=== PATIENT | male | born 1995 | race Caucasian/White ===

== ENCOUNTER 2021-01-16 02:11 | Emergency (ER) | payer OTHER, SELFPAY ==
--- NOTE | ~2021-01-16 | CT_ITS ---
EXAMINATION: CT ABDOMEN AND PELVIS WITH CONTRAST CLINICAL INFORMATION: Left lower quadrant pain COMPARISON: None TECHNIQUE: Multidetector volumetric images were obtained from the superior aspect of the liver through the pubic symphysis following administration 85 mL of Omnipaque 350 intravenous contrast. Sagittal and coronal reformatted images were obtained on the technologist's workstation. Oral contrast: No This CT examination was performed using dose optimization techniques as appropriate, variously including the following: *Automated exposure control *Adjustment of mA and/or kV according to patient size (this includes techniques or standardized protocols for targeted exams where dose is matched to indication/reason for exam; i.e. extremities or head) *Use of iterative reconstruction technique DLP: 757 mGy-cm FINDINGS: LUNG BASES: The visualized lung bases are unremarkable. LIVER, GALLBLADDER, AND BILIARY TREE: The liver is normal in size, shape, and attenuation. No focal hepatic lesion or biliary ductal dilatation is present. The gallbladder is unremarkable with no evidence of radiopaque gallstones, gallbladder wall thickening, or obvious pericholecystic inflammatory changes. PANCREAS: Unremarkable. SPLEEN: Unremarkable. ADRENAL GLANDS: Unremarkable. KIDNEYS AND URETERS: The kidneys are normal in size, shape, and attenuation. There is mild left hydronephrosis. There is a proximal ureteral 0.5 cm calculus near the ureteropelvic junction. No additional renal calculi. BLADDER: Unremarkable. GASTROINTESTINAL TRACT: The stomach is unremarkable. Normal caliber small bowel. No obstruction. No colonic wall thickening or inflammatory change. Normal appendix. No free air or free fluid. ABDOMINAL WALL: No significant hernia is appreciated. LYMPH NODES: Normal. VASCULAR: Unremarkable. PELVIC VISCERA: The prostate and seminal vesicles are unremarkable. OSSEOUS STRUCTURES: No acute or suspicious osseous abnormality. CT/CT abdomen pelvis w con IMPRESSION: Mild left hydronephrosis with a 0.5 cm proximal ureteral calculus near the ureteropelvic junction.
[2021-01-16 02:19] VITALS: BP 123/73; BP 126/73; PULSE 69; RESP 18; TEMP 37; O2SAT 100; BMI 33.4
--- NOTE | 2021-01-16 02:37 | ED_ITS ---
HPI - Abdominal Pain General Chief Complaint: Abdominal Pain Stated Complaint: abd pain Time Seen by Provider: 01/16/21 02:29 Source: patient Mode of arrival: ambulatory Limitations: no limitations History of Present Illness HPI narrative: Patient comes to the emergency room by EMS complaining of severe abdominal pain, started 1 hour prior to arrival. Patient denies nausea or vomiting, pain is diffuse in his but worse in the left lower quadrant. Patient states that for the last 2 days he has noticed that the color of his urine has been getting darker, today he is urinating Coca-Cola colored urine. Patient denies fever chills. Patient denies flank pain. Related Data Previous Rx's Medication Instructions Recorded ketorolac 10 mg PO TID PRN 5 Days #14 tab 01/16/21 ondansetron HCl [Zofran] 4 mg PO Q6H PRN #14 tab 01/16/21 prednisone 20 mg PO DAILY #5 tab 01/16/21 tamsulosin 0.4 mg PO DAILY #10 cap 01/16/21 Allergies Allergy/AdvReac Type Severity Reaction Status Date / Time No Known Allergies Allergy Unverified 05/31/20 17:18 Review of Systems Review of Systems Constitutional : No Weight loss, No Fever, No Chills, No Night Sweats, No Fatigue, No Malaise ENT/Mouth : No Hearing loss, No Ear Pain, No Nasal Congestion, No Sinus Pain, No Hoarseness, No sore throat, No Rhinorrhea, No Swallowing Difficulty Eyes: No Eye Pain, No Swelling, No Redness, No Foreign Body, No Discharge, No Vision Changes Cardiovascular : No Chest Pain, No SOB, No Dyspnea on Exertion, No Orthopnea, No Edema, No Palpitations Respiratory : No Cough, No Sputum, No Wheezing, No Smoke Exposure, No Dyspnea Gastrointestinal : No Nausea, No Vomiting, No Diarrhea, No Constipation, complaining of diffuse abdominal pain, worse in the left lower quadrant No Hematochezia, No Melena Genitourinary : Complaining of Coca-Cola colored urine, No Dysuria, No Urinary Frequency, No Hematuria, No Urinary Incontinence, No Urgency, No Flank Pain, No Urinary Flow Changes, No Hesitancy Musculoskeletal : No joint pain, No Myalgias, No Joint Swelling Skin : No Skin Lesions, No rash Neuro : No Weakness, No Numbness, No Paresthesias, No Loss of Consciousness, No Dizziness, No Headache Psych : No Anxiety/Panic, No Depression, No SI/HI/AH/VH, No Social Issues, Heme/Lymph: No Bruising, No Bleeding,No Lymphadenopathy Endocrine : No Polyuria, No Polydipsia, No Temperature Intolerance Physical Exam Vital Signs: Vital Signs: Last Vital Signs Temp 98.6 F 01/16/21 02:19 Pulse 69 01/16/21 02:19 Resp 18 01/16/21 02:19 BP 126/73 01/16/21 02:19 Pulse Ox 100 01/16/21 02:19 Body Mass Index 33.4 Appearance: Alert. Oriented X3. In pain, unable to lay down comfortably Eyes: Pupils equal, round and reactive to light. ENT: Pharynx normal. Neck: Normal inspection. Neck supple. No lymph nodes noted. No crepitus CVS: Normal heart rate and rhythm. Pulses normal. Normal S1 and S2 Respiratory: No respiratory distress. Breath sounds normal. No Wheezing. No rales Abdomen: Soft , diffuse tenderness to palpation, worse in the left lower quadrant, guarding in all quadrants, positive CVA tenderness in the left side Skin: Skin warm and dry. Normal skin color. Normal skin turgor. Extremities: No lower extremity edema. No lower extremity edema. No Lacerations. No Rash Neuro: Oriented X 3. No motor deficit. No sensory deficit. Moving all extermities. No slurred speech. Course Course Course Narrative: I discussed the labs and imaging with the patient, patient has a 0.5 cm in the UPJ. I discussed with the patient that at this size, it is 50%/50% that he may pass it or he may need surgical intervention. At this time, patient states that he feels much better, patient will be going home with medication, instructed to follow-up with urology. MDM - Abdominal Pain Lab Data Result diagrams: 01/16/21 02:48 01/16/21 02:47 Labs: Lab Results 01/16/21 01/16/21 01/16/21 Range/Units 02:47 02:47 02:48 WBC 8.6 (4.8-10.8) X10*3/uL RBC 4.86 (4.60-5.80) X10*6/uL Hgb 14.7 (14.0-18.0) g/dl Hct 40.6 L (42-52) % MCV 83.5 (80-98) fL MCH 30.2 (27.0-33.0) pg MCHC 36.2 H (31.0-36.0) g/dl RDW 11.8 (11.0-16.0) % Plt Count 293 (160-400) X10*3/uL MPV 10.1 (9.4-12.4) fL Immature Gran % (Auto) 0.1 (0.0-0.4) % Neut % (Auto) 44.0 L (45-73) % Lymph % (Auto) 46.4 H (20-40) % [place] % (Auto) 6.5 (2-11) % Eos % (Auto) 2.8 (0-4) % Baso % (Auto) 0.2 (0-2) % Lymph # (Auto) 4.0 (1.2-4.9) X10*3/uL [place] # (Auto) 0.6 (0.1-1.2) X10*3/uL Eos # (Auto) 0.2 (0.0-0.4) X10*3/uL Baso # (Auto) 0.0 (0.0-0.2) X10*3/uL Abs Immat Gran (auto) 0.01 (0.00-0.03) X10*3/uL Absolute Neuts (auto) 3.8 (2.0-8.3) X10*3/uL Absolute Nucleated RBC 0.000 (0.0-0.012) X10*3/uL Nucleated RBC % (auto) 0.0 (0.0-0.2) /100WBC Sodium 140 (135-145) mmol/L Potassium 3.9 (3.3-5.1) mmol/L Chloride 104 (96-108) mmol/L Carbon Dioxide 23 (22-29) mmol/L Anion Gap 17 (12-20) BUN 13 (9-16) mg/dL Creatinine 0.97 (0.5-1.4) mg/dL Estim Creat Clear Calc 134.4 Estimated GFR > 60 Random Glucose 109 (60-115) mg/dL Calcium 9.8 (8.4-10.2) mg/dL Total Bilirubin 0.6 (0.0-1.0) mg/dL Direct Bilirubin 0.2 (0.0-0.5) mg/dL AST 19 (5-37) U/L ALT 26 (0-40) U/L Alkaline Phosphatase 82 (39-117) U/L Total Protein 7.3 (6.5-8.0) g/dL Albumin 4.4 (3.5-5.0) g/dL Lipase 15 (8-78) U/L Urine Color Urine Appearance Urine pH (5.0-8.0) Ur Specific [place] (1.005-1.025) Urine Protein (NEG-TRACE) MG/DL Urine Glucose (UA) (NEG) MG/DL Urine Ketones (NEG) MG/DL Urine Blood (NEG) Urine Nitrite (NEG) Ur Leukocyte Esterase (NEG) Urine RBC (0) /HPF Urine WBC (0-4) /HPF Ur Squamous Epith Cells /LPF Urine Bacteria /LPF Hyaline Casts /LPF Urine Mucus /LPF 01/16/21 Range/Units 02:48 WBC (4.8-10.8) X10*3/uL RBC (4.60-5.80) X10*6/uL Hgb (14.0-18.0) g/dl Hct (42-52) % MCV (80-98) fL MCH (27.0-33.0) pg MCHC (31.0-36.0) g/dl RDW (11.0-16.0) % Plt Count (160-400) X10*3/uL MPV (9.4-12.4) fL Immature Gran % (Auto) (0.0-0.4) % Neut % (Auto) (45-73) % Lymph % (Auto) (20-40) % [place] % (Auto) (2-11) % Eos % (Auto) (0-4) % Baso % (Auto) (0-2) % Lymph # (Auto) (1.2-4.9) X10*3/uL [place] # (Auto) (0.1-1.2) X10*3/uL Eos # (Auto) (0.0-0.4) X10*3/uL Baso # (Auto) (0.0-0.2) X10*3/uL Abs Immat Gran (auto) (0.00-0.03) X10*3/uL Absolute Neuts (auto) (2.0-8.3) X10*3/uL Absolute Nucleated RBC (0.0-0.012) X10*3/uL Nucleated RBC % (auto) (0.0-0.2) /100WBC Sodium (135-145) mmol/L Potassium (3.3-5.1) mmol/L Chloride (96-108) mmol/L Carbon Dioxide (22-29) mmol/L Anion Gap (12-20) BUN (9-16) mg/dL Creatinine (0.5-1.4) mg/dL Estim Creat Clear Calc Estimated GFR Random Glucose (60-115) mg/dL Calcium (8.4-10.2) mg/dL Total Bilirubin (0.0-1.0) mg/dL Direct Bilirubin (0.0-0.5) mg/dL AST (5-37) U/L ALT (0-40) U/L Alkaline Phosphatase (39-117) U/L Total Protein (6.5-8.0) g/dL Albumin (3.5-5.0) g/dL Lipase (8-78) U/L Urine Color BROWN Urine Appearance HAZY Urine pH 6.5 (5.0-8.0) Ur Specific [place] >= 1.030 H (1.005-1.025) Urine Protein 2+ H (NEG-TRACE) MG/DL Urine Glucose (UA) NEG (NEG) MG/DL Urine Ketones NEG (NEG) MG/DL Urine Blood 3+ H (NEG) Urine Nitrite NEG (NEG) Ur Leukocyte Esterase NEG (NEG) Urine RBC 76-150 H (0) /HPF Urine WBC 1-4 (0-4) /HPF Ur Squamous Epith Cells 1+ /LPF Urine Bacteria 2+ /LPF Hyaline Casts 1-4 /LPF Urine Mucus 2+ /LPF Imaging Data CT scan - abdomen: Radiologist's impression: FINDINGS: LUNG BASES: The visualized lung bases are unremarkable. LIVER, GALLBLADDER, AND BILIARY TREE: The liver is normal in size, shape, and attenuation. No focal hepatic lesion or biliary ductal dilatation is present. The gallbladder is unremarkable with no evidence of radiopaque gallstones, gallbladder wall thickening, or obvious pericholecystic inflammatory changes. PANCREAS: Unremarkable. SPLEEN: Unremarkable. ADRENAL GLANDS: Unremarkable. KIDNEYS AND URETERS: The kidneys are normal in size, shape, and attenuation. There is mild left hydronephrosis. There is a proximal ureteral 0.5 cm calculus near the ureteropelvic junction. No additional renal calculi. BLADDER: Unremarkable. GASTROINTESTINAL TRACT: The stomach is unremarkable. Normal caliber small bowel. No obstruction. No colonic wall thickening or inflammatory change. Normal appendix. No free air or free fluid. ABDOMINAL WALL: No significant hernia is appreciated. LYMPH NODES: Normal. VASCULAR: Unremarkable. PELVIC VISCERA: The prostate and seminal vesicles are unremarkable. OSSEOUS STRUCTURES: No acute or suspicious osseous abnormality. CT/CT abdomen pelvis w con IMPRESSION: Mild left hydronephrosis with a 0.5 cm proximal ureteral calculus near the ureteropelvic junction. Discharge Plan Discharge Clinical Impression: Ureterolithiasis Patient Disposition: Home, Self-Care Instructions: Kidney Stones (ED) Additional Instructions: Please follow-up with urology. Please follow-up with your primary care physician tomorrow. If you have any worsening or new symptoms, please return to the emergency room or call 911 Prescriptions: New ketorolac 10 mg tablet 10 mg PO TID PRN (Reason: pain) 5 Days Qty: 14 RF: 0 ondansetron HCl [Zofran] 4 mg tablet 4 mg PO Q6H PRN (Reason: nausea and vomiting) Qty: 14 RF: 0 tamsulosin 0.4 mg capsule 0.4 mg PO DAILY Qty: 10 RF: 0 prednisone 20 mg tablet 20 mg PO DAILY Qty: 5 RF: 0 PMFSH Past Medical History Medical History No known health problems Surgical History No history of previous surgery Social History Social History Alcohol intake: never Smoking Status: Never smoker Use of substances other than those prescribed or required for medical reasons: No Advance Directives: No Advance Directives Information Provided: No
[2021-01-16] MEDS: 0.9 % Sodium Chloride 1,000 ML 999 ML IVCONT (02:49)
[2021-01-16] MEDS: ondansetron HCL 4 MG/2 ML VIAL IVPUSH (02:49)
[2021-01-16] MEDS: Morphine Sulfate 4 MG/ML CARTRIDGE IVPUSH (02:49)
[2021-01-16 02:56] LABS: MANUAL DIFF FLAG NO
[2021-01-16 02:58] LABS: Basophils Percent Auto 0.2 % (0-2); Eosinophils Absolute Auto 0.2 X10*3/uL (0.0-0.4); Eosinophils Percent Auto 2.8 % (0-4); Hematocrit 40.6 % (42-52); Hemoglobin 14.7 g/dl (14.0-18.0); Imm Gran Abs Auto 0.01 X10*3/uL (0.00-0.03); Imm Gran Pct Auto 0.1 % (0.0-0.4); Lymphocytes Percent Auto 46.4 % (20-40); Mean Corpuscular HGB Conc 36.2 g/dl (31.0-36.0); Mean Corpuscular Hemoglobin 30.2 pg (27.0-33.0); Mean Corpuscular Volume 83.5 fL (80-98); Mean Platelet Volume 10.1 fL (9.4-12.4); Monocytes Absolute Auto 0.6 X10*3/uL (0.1-1.2); Monocytes Percent Auto 6.5 % (2-11); Neutrophils Absolute Auto 3.8 X10*3/uL (2.0-8.3); Platelet Count 293 X10*3/uL (160-400); Red Blood Count 4.86 X10*6/uL (4.60-5.80); Red Cell Distribution Width 11.8 % (11.0-16.0); White Blood Count 8.6 X10*3/uL (4.8-10.8)
[2021-01-16 03:07] LABS: Glucose Urine UA NEG (NEG); Leukocyte Esterase Urine NEG (NEG); PH 6.5 (5.0-8.0); Specific Gravity - Urine >= 1.030 (1.005-1.025); Urine Blood 3+ (NEG); Urine Ketones NEG (NEG); Urine Protein 2+ MG/DL (NEG-TRACE)
[2021-01-16 03:12] LABS: Appearance Urine HAZY; Color Urine BROWN; Nitrite Urine NEG (NEG)
[2021-01-16 03:13] LABS: Bacteria Urine 2+ /LPF; Mucus Urine 2+ /LPF; Squamous Epithelial Cell Urine 1+ /LPF
[2021-01-16 03:26] LABS: Anion Gap 17 (12-20); Blood Urea Nitrogen 13 mg/dL (9-16); Calcium 9.8 mg/dL (8.4-10.2); Carbon Dioxide 23 mmol/L (22-29); Chloride 104 mmol/L (96-108); Creatinine Clr Calc Pharmacy 134.4; Estimated Glomerular Filt Rate > 60; Glucose Random 109 mg/dL (60-115); Potassium 3.9 mmol/L (3.3-5.1); Sodium 140 mmol/L (135-145)
[2021-01-16 03:29] LABS: Alanine Aminotransferase 26 U/L (0-40); Albumin Level 4.4 g/dL (3.5-5.0); Alkaline Phosphatase 82 U/L (39-117); Aspartate Amino Transferase 19 U/L (5-37); Bilirubin Direct 0.2 mg/dL (0.0-0.5); Bilirubin Total 0.6 mg/dL (0.0-1.0); Lipase 15 U/L (8-78); Total Protein 7.3 g/dL (6.5-8.0)
[2021-01-16] MEDS: iohexoL 350 MG/ML 100 ML INFUS..BTL 85 ML IV (03:41)
[2021-01-16] MEDS: predniSONE 20 MG TABLET PO (04:35)
[2021-01-16] MEDS: Ketorolac Tromethamine 30 MG/ML VIAL IVPUSH (04:35)
[2021-01-16] MEDS: Tamsulosin HCL 0.4 MG CAPSULE PO (04:35)
== END 2021-01-16 04:36 | disposition home or self-care (01) ==
PROVIDERS: Emergency Provider Emergency Medicine; PCP Internal Medicine Endocrinology, Diabetes & Metabolism
DX: N13.2 Hydronephrosis with renal and ureteral calculous obstruction (principal)
CPT/HCPCS: 36415; 74177; 80048; 80076; 81001; 81003; 83690; 85025; 96361; 96374; 96375; 99284; J1885; J2270; J2405; Q9967

== ENCOUNTER 2021-02-22 07:51 | Day surgery (SDC) | payer OTHER, SELFPAY ==
[2021-02-22] VITALS (13 sets, daily range): BP systolic 98–147; BP diastolic 37–78; PULSE 55–98; RESP 11–18; TEMP 36.2–36.9; O2SAT 95–100; BMI 37.8
--- NOTE | ~2021-02-22 | CT_ITS ---
EXAMINATION: CT ABDOMEN AND PELVIS WITHOUT CONTRAST CLINICAL INFORMATION: Pain. Known left UPJ stone. COMPARISON: Previous CT of the abdomen and pelvis 01/16/2021 TECHNIQUE: Multidetector volumetric imaging was performed from the superior aspect of the liver through the pubic symphysis. Sagittal and coronal reformatted images were obtained on the technologist's workstation. This CT examination was performed using dose optimization techniques as appropriate, variously including the following: *Automated exposure control *Adjustment of mA and/or kV according to patient size (this includes techniques or standardized protocols for targeted exams where dose is matched to indication/reason for exam; i.e. extremities or head) *Use of iterative reconstruction technique DLP: 774 mGy-cm FINDINGS: LUNG BASES: The visualized lung bases are unremarkable. LIVER, GALLBLADDER, AND BILIARY TREE: The liver is normal in size, shape, and attenuation. No focal hepatic lesion or biliary ductal dilatation is present. The gallbladder is unremarkable with no evidence of radiopaque gallstones, gallbladder wall thickening, or obvious pericholecystic inflammatory changes. PANCREAS: Unremarkable. SPLEEN: Unremarkable. ADRENAL GLANDS: Unremarkable. KIDNEYS AND URETERS: There is a 3 x 5 mm mid proximal ureteral stone. There is minimal atelectasis of the stone down the left ureter compared to previous exam. There is increasing mild to moderate left hydronephrosis and ureteral dilatation. BLADDER: Unremarkable. GASTROINTESTINAL TRACT: The small and large bowel are unremarkable. The appendix is unremarkable. ABDOMINAL WALL: No significant hernia is appreciated. LYMPH NODES: Normal. VASCULAR: Unremarkable. PELVIC VISCERA: Unremarkable. OSSEOUS STRUCTURES: Unremarkable. CT/CT abdomen pelvis wo con IMPRESSION: Increasing mild to moderate left hydronephrosis from a 3 x 5 mm left mid ureteral stone.
--- NOTE | ~2021-02-22 | FL_ITS ---
EXAMINATION: XR FLUOROSCOPY WITH IMAGES CLINICAL INFORMATION: Left ureteral stone COMPARISON: Previous CT of the abdomen and pelvis February 2021 TECHNIQUE: Fluoroscopy performed by Dr. Nestor Salas. Fluoroscopy time: 23 seconds Dose: 9.4 mgy Images: 1 FINDINGS: Single fluoroscopic image demonstrates the proximal end of a left ureteral stent projecting over the kidney. FL/FL guidance in OR IMPRESSION: Fluoroscopy guidance for left ureteral stent placement.
--- NOTE | 2021-02-22 07:56 | ED_ITS ---
HPI - Abdominal Pain General Chief Complaint: Abdominal Pain Stated Complaint: abd pain x1 hr Time Seen by Provider: 02/22/21 07:55 Source: patient, EMS and old records reviewed Mode of arrival: EMS Limitations: no limitations History of Present Illness HPI narrative: 25 yo male seen here on 01/16 dx with L UPJ 5mm stone sent home on pain medications, prednisone and flomax - did well pain resolved until 1 hour ago abrupt onset L flank pain with n/v MD elicited complaint: flank pain Pertinent past history: kidney stones Onset (ago): hour(s) (1) Pain Consistency: constant Location: L flank Severity: severe Quality: stabbing Radiation: LLQ Migration to: no migration Exacerbating factors: nothing Relieving factors: nothing Context: history of similar episodes Associated symptoms: nausea and vomiting Related Data Previous Rx's Medication Instructions Recorded ketorolac 10 mg PO TID PRN 5 Days #14 tab 01/16/21 ondansetron HCl [Zofran] 4 mg PO Q6H PRN #14 tab 01/16/21 prednisone 20 mg PO DAILY #5 tab 01/16/21 tamsulosin 0.4 mg PO DAILY #10 cap 01/16/21 Allergies Allergy/AdvReac Type Severity Reaction Status Date / Time No Known Allergies Allergy Unverified 05/31/20 17:18 Review of Systems Review of Systems Constitutional : No Weight loss, No Fever, No Chills ENT/Mouth : No sore throat, No Rhinorrhea Eyes: No Swelling, No Redness Cardiovascular : No Chest Pain, No SOB, NoEdema Respiratory : No Cough, No Sputum, No Wheezing Gastrointestinal : Positive Nausea, Positive Vomiting, no Diarrhea, positive abdominal Pain, No Hematochezia, No Melena Genitourinary : No Dysuria, No Urinary Frequency, No Hematuria, No Urgency Musculoskeletal : No joint pain, No Myalgias, No Joint Swelling, pos back pain Skin : No Skin Lesions, No rash Neuro : No Weakness, No Numbness, No Dizziness, No Headache Psych : No Anxiety/Panic, No Depression Heme/Lymph: No Bruising, No Lymphadenopathy Endocrine : No Polyuria, No Polydipsia All other systems reviewed and are negative. Physical Exam Vital Signs: Vital Signs: Last Vital Signs Temp 98.2 F 02/22/21 15:42 Pulse 91 02/22/21 15:42 Resp 18 02/22/21 15:42 BP 147/77 H 02/22/21 15:42 Pulse Ox 98 02/22/21 15:42 Body Mass Index 37.8 Appearance: Alert. Oriented X3. anxious in pain mild acute distress. Eyes: Pupils equal, round and reactive to light. ENT: Pharynx normal. Neck: Normal inspection. Neck supple. CVS: Normal heart rate and rhythm. Pulses normal. Respiratory: No respiratory distress. Breath sounds normal. Abdomen: Soft and mild L sided ttp no rebound or gurding Back: no ttp Skin: Skin warm and dry. pale skin color. Normal skin turgor. Extremities: No lower extremity edema. No calf ttp Neuro: Oriented X 3. No motor deficit. No sensory deficit. Course Course Course Narrative: stone has not progressed, at this time message sent to Dr. Salas added on flomax and steroids, may need intervention today pending Urology input Dr. Salas to come assess in ED plan for OR later today MDM - Abdominal Pain MDM Narrative Medical decision making narrative: 25 yo male seen here on 01/16 dx with L UPJ 5mm stone sent home on pain medications, prednisone and flomax - did well pain resolved until 1 hour ago abrupt onset L flank pain with n/v at this time suspect the patient's stone is moving, will need repeat labs, UA, IVF, IV pain medications including IV dilaudid for his pain, CT scan repeat to assess stone location, dispo per results and improvement Lab Data Result diagrams: 02/22/21 08:02 02/22/21 08:02 Labs: Lab Results 02/22/21 02/22/21 02/22/21 Range/Units 08:02 08:02 09:30 WBC 5.8 (4.8-10.8) X10*3/uL RBC 4.63 (4.60-5.80) X10*6/uL Hgb 13.9 L (14.0-18.0) g/dl Hct 39.4 L (42-52) % MCV 85.1 (80-98) fL MCH 30.0 (27.0-33.0) pg MCHC 35.3 (31.0-36.0) g/dl RDW 11.7 (11.0-16.0) % Plt Count 291 (160-400) X10*3/uL MPV 10.0 (9.4-12.4) fL Immature Gran % (Auto) 0.2 (0.0-0.4) % Neut % (Auto) 37.1 L (45-73) % Lymph % (Auto) 50.8 H (20-40) % [place] % (Auto) 7.3 (2-11) % Eos % (Auto) 4.3 H (0-4) % Baso % (Auto) 0.3 (0-2) % Lymph # (Auto) 2.9 (1.2-4.9) X10*3/uL [place] # (Auto) 0.4 (0.1-1.2) X10*3/uL Eos # (Auto) 0.3 (0.0-0.4) X10*3/uL Baso # (Auto) 0.0 (0.0-0.2) X10*3/uL Abs Immat Gran (auto) 0.01 (0.00-0.03) X10*3/uL Absolute Neuts (auto) 2.2 (2.0-8.3) X10*3/uL Absolute Nucleated RBC 0.000 (0.0-0.012) X10*3/uL Nucleated RBC % (auto) 0.0 (0.0-0.2) /100WBC Sodium 140 (135-145) mmol/L Potassium 3.9 (3.3-5.1) mmol/L Chloride 106 (96-108) mmol/L Carbon Dioxide 26 (22-29) mmol/L Anion Gap 12 (12-20) BUN 14 (9-16) mg/dL Creatinine 0.96 (0.5-1.4) mg/dL Estim Creat Clear Calc 126.7 Estimated GFR > 60 Random Glucose 115 (60-115) mg/dL Calcium 9.1 D (8.4-10.2) mg/dL Magnesium 1.9 (1.6-2.6) mg/dL Total Bilirubin 0.5 (0.0-1.0) mg/dL Direct Bilirubin 0.2 (0.0-0.5) mg/dL AST 22 (5-37) U/L ALT 28 (0-40) U/L Alkaline Phosphatase 78 (39-117) U/L Total Protein 6.7 (6.5-8.0) g/dL Albumin 4.1 (3.5-5.0) g/dL Lipase 16 (8-78) U/L COVID-19 ([facility]ANVI) Negative (Negative) COVID-19 Clin Com See Note Discharge Plan Discharge Clinical Impression: Calculus of kidney Patient Disposition: Admitted As Inpatient [facility] Past Medical History Attestation statement: The following information was validated with the patient. Medical History No known health problems Renal colic Surgical History No history of previous surgery Social History Social History Alcohol intake: never Patient Tobacco Use Status: Never used Tobacco Use of substances other than those prescribed or required for medical reasons: No Are you DNR?: No Advance Directives: No Advance Directives Information Provided: No
[2021-02-22] MEDS: ondansetron HCL 4 MG/2 ML VIAL IVPUSH (08:06)
[2021-02-22] MEDS: Ketorolac Tromethamine 30 MG/ML VIAL IVPUSH (08:06)
[2021-02-22] MEDS: HYDROmorphone HCl 1 MG/ML SYRINGE IVPUSH ×2 (08:06→11:07)
[2021-02-22] MEDS: 0.9 % Sodium Chloride 1,000 ML 999 ML IVCONT (08:07)
[2021-02-22 08:08] LABS: MANUAL DIFF FLAG NO
[2021-02-22 08:09] LABS: Basophils Percent Auto 0.3 % (0-2); Eosinophils Absolute Auto 0.3 X10*3/uL (0.0-0.4); Eosinophils Percent Auto 4.3 % (0-4); Hematocrit 39.4 % (42-52); Hemoglobin 13.9 g/dl (14.0-18.0); Imm Gran Abs Auto 0.01 X10*3/uL (0.00-0.03); Imm Gran Pct Auto 0.2 % (0.0-0.4); Lymphocytes Absolute Auto 2.9 X10*3/uL (1.2-4.9); Lymphocytes Percent Auto 50.8 % (20-40); Mean Corpuscular HGB Conc 35.3 g/dl (31.0-36.0); Mean Corpuscular Volume 85.1 fL (80-98); Monocytes Absolute Auto 0.4 X10*3/uL (0.1-1.2); Monocytes Percent Auto 7.3 % (2-11); Neutrophils Absolute Auto 2.2 X10*3/uL (2.0-8.3); Neutrophils Percent Auto 37.1 % (45-73); Platelet Count 291 X10*3/uL (160-400); Red Blood Count 4.63 X10*6/uL (4.60-5.80); Red Cell Distribution Width 11.7 % (11.0-16.0); White Blood Count 5.8 X10*3/uL (4.8-10.8)
[2021-02-22 08:35] LABS: Alanine Aminotransferase 28 U/L (0-40); Albumin Level 4.1 g/dL (3.5-5.0); Alkaline Phosphatase 78 U/L (39-117); Anion Gap 12 (12-20); Aspartate Amino Transferase 22 U/L (5-37); Bilirubin Direct 0.2 mg/dL (0.0-0.5); Bilirubin Total 0.5 mg/dL (0.0-1.0); Blood Urea Nitrogen 14 mg/dL (9-16); Calcium 9.1 mg/dL (8.4-10.2); Carbon Dioxide 26 mmol/L (22-29); Chloride 106 mmol/L (96-108); Creatinine Clr Calc Pharmacy 126.7; Estimated Glomerular Filt Rate > 60; Glucose Random 115 mg/dL (60-115); Lipase 16 U/L (8-78); Magnesium 1.9 mg/dL (1.6-2.6); Potassium 3.9 mmol/L (3.3-5.1); Sodium 140 mmol/L (135-145); Total Protein 6.7 g/dL (6.5-8.0)
[2021-02-22] MEDS: methylPREDNISolone Sod Succ 125 MG/2 ML VIAL 60 MG IVPUSH (09:34)
[2021-02-22] MEDS: Tamsulosin HCL 0.4 MG CAPSULE PO (09:34)
[2021-02-22 09:51] LABS: COVID-19 Test Negative (Negative); IDNOW Serial# 9DD0AD1C
[2021-02-22] MEDS: 0.9 % Sodium Chloride 1,000 ML 125 ML IVCONT (11:05)
--- NOTE | 2021-02-22 15:51 | HO.ANESPROP2 ---
[facility] Active Problems Active Problems: All Active Problems (Updated 02/22/21 @ 10:10 by Jaquelin Diamond DO) Calculus of kidney (Acute) Past Medical History Medical History No known health problems Renal colic Surgical History Surgical History No history of previous surgery Social History Social History Alcohol intake: never Patient Tobacco Use Status: Never used Tobacco Advance Directives: No Advance Directives Information Provided: No Meds Allergies Allergy/AdvReac Type Severity Reaction Status Date / Time No Known Allergies Allergy Unverified 05/31/20 17:18 Active Medications: Current Medications Generic Name Dose Route Start Last Admin Trade Name Freq PRN Reason Stop Dose Admin Hydromorphone HCl 1 mg 02/22/21 10:10 02/22/21 11:07 Hydromorphone Hcl 1 Mg/Ml Syringe IVPUSH 1 mg RQ4H PRN Administration Pain, Moderate (Pain Scale 4-6 Sodium Chloride 1,000 mls @ 125 mls/hr 02/22/21 10:15 02/22/21 11:05 Ns IVCONT 125 mls/hr .Q8H LEXIE Administration Lactated Ringer's 500 mls @ 20 mls/hr 02/22/21 16:00 Lr IVCONT .Q24H LEXIE Exam Exam Date and Time: February 22, 2021 1551 Height,Weight and Vital Signs: Height 5 ft 4 in Weight 100 kg Last Vital Signs Temp 98 F 02/22/21 07:55 Pulse 67 02/22/21 11:29 Resp 14 02/22/21 11:29 BP 133/78 02/22/21 11:29 Pulse Ox 97 02/22/21 11:29 Pertinent Lab Results Pertinent Lab Results: Laboratory Tests 02/22/21 02/22/21 02/22/21 08:02 08:02 09:30 WBC 5.8 RBC 4.63 Hgb 13.9 L Hct 39.4 L MCV 85.1 MCH 30.0 MCHC 35.3 RDW 11.7 Plt Count 291 MPV 10.0 Immature Gran % (Auto) 0.2 Neut % (Auto) 37.1 L Lymph % (Auto) 50.8 H [place] % (Auto) 7.3 Eos % (Auto) 4.3 H Baso % (Auto) 0.3 Lymph # (Auto) 2.9 [place] # (Auto) 0.4 Eos # (Auto) 0.3 Baso # (Auto) 0.0 Abs Immat Gran (auto) 0.01 Absolute Neuts (auto) 2.2 Absolute Nucleated RBC 0.000 Nucleated RBC % (auto) 0.0 Sodium 140 Potassium 3.9 Chloride 106 Carbon Dioxide 26 Anion Gap 12 BUN 14 Creatinine 0.96 Estim Creat Clear Calc 126.7 Estimated GFR > 60 Random Glucose 115 Calcium 9.1 D Magnesium 1.9 Total Bilirubin 0.5 Direct Bilirubin 0.2 AST 22 ALT 28 Alkaline Phosphatase 78 Total Protein 6.7 Albumin 4.1 Lipase 16 COVID-19 ([facility]ANVI) Negative COVID-19 Clin Com See Note Airway Mallampati Class: II TM Dist: >3cm Neck ROM: Full Assessment and Plan Assessment Anesthesia Assessment: Anesthesia Plan Discussed and Chart Reviewed Final Anesthetic Review NPO: Yes ASA Class: II Final Preanesthetic Review: No Changes in Pt Med Stat, Meds/Allgs Chart Reviewed, Consent Obtained/Reviewed and Anes Risks/Benef Reviewed Patient Risk: Low Procedure Risk: Low Assessment/Block/Sedation in SS: Assess/Block/Sedation-SS Anesthetic Plan Anesthetic Plan: GA Disposition: Standard PACU
[2021-02-22] MEDS: Lactated Ringers 500 ML 20 ML IVCONT (15:54)
--- NOTE | 2021-02-22 16:27 | MHC.SHP ---
Pre-Procedural Eval Section A The patient is an INPATIENT: No Changes since office visit: No Cold of Flu in the past 2 weeks, No New Medical Problems, No Changes in Medication and No Patient answered all questions The History & Physical has been completed within 30 days and I have reviewed it.: Yes Section B Chief Complaint: abd pain x1 hr Allergies: Allergies Allergy/AdvReac Type Severity Reaction Status Date / Time No Known Allergies Allergy Unverified 05/31/20 17:18 Plan Diagnosis/Plan: Unchanged (Left retrograde ureteroscopy laser and stent) I have reviewed the history and physical and performed a pertinent physical examination on my patient. No changes have occurred unless specified.
--- NOTE | 2021-02-22 16:28 | P.CNUR_ITS ---
History of Present Illness Consult details Consult date: 02/22/21 Narrative: Nolan is a very pleasant male. He is patient of Dr. Moreno. Presents to emergency room with left-sided flank pain Pain is 8/10 Responded to oral medications Associated with nausea and vomiting Had prior presentation January 16 CT imaging shows 6 mm stone at junction between proximal and mid ureter Minimal movement since prior imaging Family history of stones with mother This is his 1st Recommendation for intervention, risks and benefits of ureteroscopy discussed PMF Past Medical History Medical History No known health problems Renal colic Surgical History Surgical History No history of previous surgery Social History Social History Alcohol intake: never Patient Tobacco Use Status: Never used Tobacco Use of substances other than those prescribed or required for medical reasons: No Are you DNR?: No Advance Directives: No Advance Directives Information Provided: No Meds Allergies Allergy/AdvReac Type Severity Reaction Status Date / Time No Known Allergies Allergy Unverified 05/31/20 17:18 Active Medications: Current Medications Generic Name Dose Route Start Last Admin Trade Name Freq PRN Reason Stop Dose Admin Acetaminophen 650 mg 02/22/21 15:50 Acetaminophen 325 Mg Tablet PO ONCE PRN Pain, Mild (Pain Scale 1-3) Fentanyl 50 mcg 02/22/21 15:50 Fentanyl Citrate/Pf 100 Mcg/2 Ml Vial IVPUSH Q5M PRN Pain, Severe (Pain Scale 7-10) Hydromorphone HCl 1 mg 02/22/21 10:10 02/22/21 11:07 Hydromorphone Hcl 1 Mg/Ml Syringe IVPUSH 1 mg RQ4H PRN Administration Pain, Moderate (Pain Scale 4-6 Sodium Chloride 1,000 mls @ 125 mls/hr 02/22/21 10:15 02/22/21 11:05 Ns IVCONT 125 mls/hr .Q8H LEXIE Administration Lactated Ringer's 500 mls @ 20 mls/hr 02/22/21 16:00 02/22/21 15:54 Lr IVCONT 20 mls/hr .Q24H LEXIE Administration Levofloxacin 500 mg 02/22/21 16:25 Levofloxacin 500 Mg Tablet PO 02/22/21 16:26 ONCE ONE Ondansetron HCl 4 mg 02/22/21 15:50 Ondansetron Hcl 4 Mg/2 Ml Vial IVPUSH ONCE PRN Nausea and Vomiting Oxycodone HCl 5 mg 02/22/21 15:50 Oxycodone Hcl Immed Release 5 Mg Tablet PO ONCE PRN Pain, Severe (Pain Scale 7-10) Physical Exam Vital Signs: Vital Signs: Last Vital Signs Temp 98.2 F 02/22/21 15:42 Pulse 91 02/22/21 15:42 Resp 18 02/22/21 15:42 BP 147/77 H 02/22/21 15:42 Pulse Ox 98 02/22/21 15:42 Body Mass Index 37.8 Const: General: cooperative, healthy appearing, comfortable and no acute di stress Nutritional Appearance: average body habitus [place] ation/consciousness: oriented to person, oriented to place and oriented to time Eyes: General: appearance normal, both eyes and all related structures Chest: Chest palpation & inspection: normal inspection of the chest Resp: Effort & Inspection: normal respiratory effort Cardio: Rate: regular rate GI: Inspection: Yes normal to inspection Skin: Hair: normal Neuro: General: oriented to person, oriented to place and oriented to time Extrem: General: Yes normal to inspection Results Labs Result diagrams: 02/22/21 08:02 02/22/21 08:02 Labs: Abnormal lab results 02/22/21 Range/Units 08:02 Hgb 13.9 L (14.0-18.0) g/dl Hct 39.4 L (42-52) % Neut % (Auto) 37.1 L (45-73) % Lymph % (Auto) 50.8 H (20-40) % Eos % (Auto) 4.3 H (0-4) % Short CBC 02/22/21 Range/Units 08:02 WBC 5.8 (4.8-10.8) X10*3/uL Hgb 13.9 L (14.0-18.0) g/dl Hct 39.4 L (42-52) % Plt Count 291 (160-400) X10*3/uL BMP 02/22/21 08:02 Sodium 140 Potassium 3.9 Chloride 106 Carbon Dioxide 26 BUN 14 Creatinine 0.96 Calcium 9.1 D Liver Function 02/22/21 Range/Units 08:02 Total Bilirubin 0.5 (0.0-1.0) mg/dL Direct Bilirubin 0.2 (0.0-0.5) mg/dL AST 22 (5-37) U/L ALT 28 (0-40) U/L Alkaline Phosphatase 78 (39-117) U/L Albumin 4.1 (3.5-5.0) g/dL All other labs normal. Assessment and Plan (1) Calculus of kidney: Status: Acute Ureteroscopy We discussed the nature of the decision and reasonable alternatives for performing the above surgery. Interventions include chemical dissolution, ESWL, ureteroscopy with laser lithotripsy and stent placement, PCNL. Options such as medical therapy were discussed. The relative uncertainties and benefits related to each alternate procedure were adequately discussed. General surgical risks including, but not limited to, pain, bleeding, infection, myocardial infarction, pulmonary embolus, deep vein thrombosis and cerebrovascular accident which may result in further hospitalization were discussed. Full disclosure of the procedure as well as all major risks, benefits and complications were discussed including but not limited to damage to the urethra, bladder and kidney infection, damage to the ureter, stent migration or malposition, scarring to the renal pelvis, remnant stone fragments, subsequent stone passage with need for secondary procedures. The overall secondary proce dure rate is approximately 10-15%. The success rate of the procedure was discussed. Success of the procedure in the short-term does not necessarily guarantee that long-term success will be maintained. Suitable follow up will need to be maintained. The patient showed understanding of discussion and wishes to proceed with - cystoscopy, retrograde, ureteroscopy, possible lithotripsy/stone basketing and stent on the left side Procedures Date of Service Date of Service: 02/22/21
[2021-02-22] MEDS: levoFLOXacin 500 MG TABLET PO (16:29)
--- NOTE | 2021-02-22 17:05 | P.OP_ITS ---
Operative Note Operative Note Date of Service: 02/22/21 Narrative: PreOperative Diagnosis: Left proximal ureteric stone Post Operative Diagnosis: Same Procedure: - left cystoscopy, retrograde - dilatation of ureteric orifice under fluoroscopy - left ureteroscopy, laser lithotripsy, stone basketing - left stent placement Surgeon: Dr Nestor Salas Anesthesia: General Indications for procedure: Nolan was admitted through the emergency room with left-sided flank pain. This was his 2nd presentation with flank pain to the emergency room in the past [address] imaging confirmed there was a 5 mm stone at the junction between the proximal and mid ureter. Associated mild hydronephrosis. Laboratories were normal. Recommendation for intervention with ureteroscopy and associated procedures. Risks and benefits were discussed. Procedure: After informed consent was verified patient was brought to the operating placed in supine position. Anesthesia was administered per protocol. Patient was placed in modified dorsal lithotomy position and prepped and draped in a sterile fashion. Safety pause time-out and side of surgery confirmed. Antibiotics confirmed. Twenty-two [place] cystoscope inserted per urethra. No abnormality noted of the anterior posterior urethra. Bladder was entered. Normal bladder architecture with ureteric orifice in normal position. Left ureteric orifice was cannulated and a retrograde examination performed. Filling defect shown at the junction between the left proximal and left mid ureter consistent with a stone that had been seen on CT. A Sensor guidewire was placed. A [place] dilator was used to dilate ureteric orifice under fluoroscopy. A rigid ureteral scope was taken advanced alongside the Sensor guidewire. The distal ureter was traversed. A Glidewire was placed through the rigid scope to allow guided passage. The stone was encountered at the junction between the proximal and mid ureter. The Glidewire was exchanged for a 360 nm holmium laser fiber. Using dusting settings the stone was broken into small pieces. A flat wire basket was used in an attempt to get a small piece of stone for analysis however they were too small for the basket. The rigid ureteral scope was removed. The wire was backloaded through the cystoscope. A 6 [place] by 22 cm double-J ureteric stent was placed with good coil in the renal pelvis and in the bladder under a combination of fluoroscopy and direct visualization. The bladder was emptied. The patient was extubated in the operating room and transferred in a stable condition to the recovery area. Pathology: none Drains: 6 [place] by 22 cm stent
[2021-02-22] MEDS: Phenazopyridine HCL 100 MG TABLET PO (17:39)
== END 2021-02-22 18:23 | disposition home or self-care (01) ==
LOC: HO.ED 17:04 → HO.SSS 18:15
PROVIDERS: Urology; Emergency Provider Emergency Medicine; PCP Physician Assistant Medical; Visit Provider Surgery
PROC: (CPT 52356; principal; 2021-02-22 16:30)
DX: N13.2 Hydronephrosis with renal and ureteral calculous obstruction (principal); Z87.442 Personal history of urinary calculi; Z20.822 Contact with and (suspected) exposure to COVID-19
CPT/HCPCS: 52356; 36415; 74176; 80048; 80076; 83690; 83735; 85025; 87635; 96361; 96374; 96375; 99285; C1758; C1769; C2617; J1100; J1170; J1885; J2250; J2405; J2765; J2930; J3010

== ENCOUNTER → 2021-03-05 08:49 | Outpatient (BNVA) | payer OTHER, SELFPAY | PROVIDERS: PCP Physician Assistant Medical; Visit Provider Urology | DX: N20.0 Calculus of kidney (principal) | CPT/HCPCS: 52310; 99212 ==

== ENCOUNTER → 2021-04-18 13:45 | Outpatient (BNVA) | payer OTHER, SELFPAY | PROVIDERS: PCP Physician Assistant Medical; Visit Provider Urology | DX: N20.0 Calculus of kidney (principal) | CPT/HCPCS: 99212 ==

== ENCOUNTER 2021-10-03 11:13 | Outpatient (REF) | payer OTHER, SELFPAY ==
--- NOTE | ~2021-10-03 | US_ITS ---
EXAMINATION: US RETROPERITONEAL LIMITED (RENAL ONLY) CLINICAL INFORMATION: Calculus of kidney. COMPARISON: CT abdomen and pelvis without contrast 02/22/2021. TECHNIQUE: Real-time imaging of the kidneys. FINDINGS: RIGHT KIDNEY: 11.0 x 6.0 x 6.6 cm (SAG x AP x TRV). The kidney is normal in size, contour, and echogenicity. Renal cortical thickness is normal. No calculi or focal parenchymal lesions. No hydronephrosis. There are scattered specular echoes in the renal sinus with questionable twinkling artifact. Possibility of nonobstructing punctate calculi cannot be excluded. LEFT KIDNEY: 11.2 x 5.4 x 5.7 cm (SAG x AP x TRV). The kidney is normal in size, contour, and echogenicity. Renal cortical thickness is normal. No focal parenchymal lesions or hydronephrosis. There are specular echoes upper and mid pole each approximately 3 mm in size suspicious for nonobstructing calculi. US/US renal BI IMPRESSION: 1. No hydronephrosis or caliectasis. 2. Probable nonobstructing calculi upper and mid left kidney each approximately 3 mm. Scattered smaller punctate specular echoes right renal sinus possibly nonobstructing calculi.
== END 2021-10-03 11:14 | disposition home or self-care (01) ==
LOC: HO.US 11:13
PROVIDERS: Visit Provider Urology
DX: N20.0 Calculus of kidney (principal)
CPT/HCPCS: 76775

== ENCOUNTER → 2021-10-22 12:55 | Outpatient (BNVA) | payer OTHER, SELFPAY | PROVIDERS: PCP Physician Assistant Medical; Visit Provider Urology ==

== ENCOUNTER 2022-10-07 07:45 | Outpatient (REF) | payer OTHER, SELFPAY ==
--- NOTE | ~2022-10-07 | US_ITS ---
EXAMINATION: US RETROPERITONEAL LIMITED (RENAL ONLY) CLINICAL INFORMATION: Calculus of kidney. COMPARISON: Ultrasound retroperitoneal limited (renal only) 10/03/2021. CT abdomen and pelvis without contrast 02/22/2021. TECHNIQUE: Real-time imaging of the kidneys. FINDINGS: RIGHT KIDNEY: 11.4 x 5.8 x 6.0 cm (SAG x AP x TRV). The kidney is normal in size, contour, and echogenicity. Renal cortical thickness is normal. No calculi or focal parenchymal lesions. No hydronephrosis. LEFT KIDNEY: 11.2 x 6.2 x 5.8 cm (SAG x AP x TRV). The kidney is normal in size, contour, and echogenicity. Renal cortical thickness is normal. No focal parenchymal lesions or hydronephrosis. Nonobstructing 5 mm stone. US/US renal BI IMPRESSION: Nonobstructing left renal nephrolithiasis.
== END 2022-10-07 07:46 | disposition home or self-care (01) ==
LOC: HO.US 07:45
PROVIDERS: Visit Provider Urology
DX: N20.0 Calculus of kidney (principal)
CPT/HCPCS: 76775

== ENCOUNTER 2023-11-24 11:33 | Emergency (ER) | payer OTHER, SELFPAY ==
[2023-11-24 12:16] VITALS: BP 138/72; PULSE 85; RESP 16; TEMP 36.6; O2SAT 98; BMI 35.4
--- NOTE | 2023-11-24 12:17 | ED_ITS ---
HPI - General Adult General Chief complaint: General Medical Stated complaint: Sent by urgent care Time Seen by Provider: 11/24/23 14:07 Source: patient Mode of arrival: ambulatory Limitations: no limitations History of Present Illness HPI narrative: This is a 27-year-old male presenting with complaints of hemorrhoid pain, patient reports he was seen at urgent Care was told he had a hemorrhoid, was placed on a cream, does not seem to be helping, he reports pain has worsened and he feels like the hemorrhoid is just not going away. He was advised to follow- up with the surgeon who he has not yet seen. Reports significant pain 06/23. Denies significant constipation. Denies fevers, chills, nausea, vomiting, abdominal pain, headache, vision changes, dizziness, weaknes, rectal bleeding. Patient not on blood thinners Related Data Previous Rx's Medication Instructions Recorded cephalexin 500 mg tablet 500 mg PO Q6H 7 days #28 tabs 11/24/23 ketorolac 10 mg tablet 10 mg PO TID PRN pain 5 days #15 11/24/23 tabs Allergies Allergy/AdvReac Type Severity Reaction Status Date / Time No Known Allergies Allergy Verified 10/22/21 12:56 Review of Systems Review of Systems: Yes all other systems are reviewed and are negative [facility] Past Medical History Attestation statement: The following information was validated with the patient. Source: old records reviewed and nursing notes reviewed Medical History Renal colic No known health problems Surgical History No history of previous surgery Social History Social History Alcohol intake: never Patient Tobacco Use Status: Never used Tobacco Smoked in Last 30 Days: No Use of substances other than those prescribed or required for medical reasons: No Advance Directives: No Advance Directives Information Provided: No Physical Exam ED Vital Signs: Vital Signs - 24 hr 11/24/23 12:16 Temperature 98 F Pulse Rate 85 Respiratory Rate 16 Blood Pressure 138/72 Pulse Oximetry 98 Oxygen Delivery Method Room Air BMI result Body Mass Index 35.4 vss Appearance: Alert.? Oriented X3.? No acute distress.? Head: Normocephalic, atraumatic, no step-offs or deformities Eyes: Pupils equal, round and reactive to light.? CVS: Normal heart rate and rhythm.? Pulses normal.? Respiratory: No respiratory distress.? Breath sounds normal.? Abdomen: Soft and nontender.? Skin: Skin warm and dry.? Normal skin color.? Normal skin turgor.? Extremities: No lower extremity edema.? No calf ttp. 5/5 strength to bilateral upper and lower extremities Sensative exam: Brisa Pizarro RN as employee relations representative & Dr. Lizama large external hemorrhoid, thrombosed. Neuro: Oriented X 3.? No motor deficit.? No sensory deficit. CN 2-12 intact Course Course Course Narrative: RME: 27 yold male preesnts to the ED for hemmoids pain. Patient on steroid rectal cream. Patient not in distress. Be evaluated in [facility] Reevaluation(s) Reevaluation #1: Successfully did a elliptical incision, multiple large clots expressed. Patient feeling better. Time: 14:39 Reevaluation #2: Educated patient on diagnosis and treatment plan, answered all question, patient verbalizes understanding. At this time patient will be discharged home, advised to return with new or worsening symptoms. Educated on worrisome signs and symptoms and when to return. At this time I feel comfortable discharge home. Medications Administered Discontinued Medications Generic Name Dose Route Start Last Admin Trade Name Freq PRN Reason Stop Dose Admin Ketorolac Tromethamine 30 mg 11/24/23 14:36 11/24/23 15:07 Ketorolac Tromethamine 30 Mg/Ml Vial IM 11/24/23 14:37 30 mg ONCE ONE Administration Procedures Abscess I/D Site: other (Rectal ) Amount of anesthesia used (mL): 10 Technique: incised with blade Sent for culture/gram staining?: No Irrigation: No Packing used?: none Medical Decision Making Medical Decision Making MDM Narrative: 27-year-old male presents with worsening pain to hemorrhoids since Thursday was seen at urgent care placed on topical cream not improving pain worsening. Physical exam Brisa Pizarro RN as employee relations representative & Dr. Lizama large external hemorrhoid, thrombosed. History and physical exam concerning for large thrombosed external hemorrhoid. No signs of prolapse. Plan at this time- will do elliptical incision and tried to remove clot. Differential Diagnosis Differential Diagnoses: The differential diagnosis associated with the presentation includes History and physical exam concerning for large thrombosed external hemorrhoid. No signs of prolapse. Admission/Observation Consideration of admission/observation: Escalation of care including admission/ observation considered Chronic Conditions Patient?s care impacted by: Other (Obesity) Critical Care Time Critical Care Time Critical Care Time: Yes Total Critical Care Time: 35 Attestation: I attest to this time spent taking care of the patient, obtaining history, physical, reviewing labs, imaging, speaking to my attendin Discharge Plan Discharge Clinical Impression: Hemorrhoids, external, thrombosed Patient Disposition: Home, Self-Care Instructions: Hemorrhoids (DC) Additional Instructions: Take your medications as prescribed. If you were prescribed antibiotics today, it is important that you take your medication to their entirety, do not skip any doses, do not finish them early. Follow-up with your primary care provider this week. Return to the emergency department with new or worsening symptoms. Such as fevers, chills, chest pain, shortness of breath, nausea, vomiting, dizziness, headache, vision changes, lethargy In case of emergency call 911 Please follow-up with general surgery. Please take Sitz baths. Use Proctofoam as prescribed Toradol has been sent to your pharmacy, you tolerated this well in the department. Please take this as prescribed do not take this with ibuprofen, or other NSAIDs, do not mix this with alcohol. Side effects of this medication including increased risk for bleeding and possible kidney injury. Prescriptions: New ketorolac 10 mg tablet 10 mg PO TID PRN (Reason: pain) 5 Days Qty: 15 0RF cephalexin 500 mg tablet 500 mg PO Q6H 7 Days Qty: 28 0RF Referrals: [facility] General Surgeons [Provider Group] - 1 day Physician,Unknown J [Physician] - 2 days Stand Alone Forms: Work/School Release Interventions: ED Discharge Assessment Last Done: 11/24/23 15:15 Discharge Date/Time: 11/24/23 15:18
[2023-11-24] MEDS: Ketorolac Tromethamine 30 MG/ML VIAL IM (15:07)
== END 2023-11-24 15:18 | disposition home or self-care (01) ==
PROVIDERS: Emergency Provider Emergency Medicine Emergency Medical Services
DX: K61.1 Rectal abscess (principal); K64.4 Residual hemorrhoidal skin tags
CPT/HCPCS: 45005; 96372; 99284; J1885

== ENCOUNTER 2023-11-26 10:11 | Outpatient (AMB) | payer OTHER, SELFPAY ==
--- NOTE | 2023-11-26 10:13 | A.OFFVIS_ITS ---
Intake Vital Signs 11/26/23 10:16 Height 5 ft 8 in Weight 234 lb BMI 35.6 BP 151/71 H Blood Pressure Location Rt brachial Position Sitting Pulse 69 Intake Visit Reasons: Hemorrhoid external thrombosed Intake Note: Patient here to f/u from ER visit on 11-23-23. Reports 2 clots removed from thrombosed hemorrhoids. Patient c/o very light bleeding. Denies constipation. Still on Cephalexin course. Filter Worker Required: No Accompanied by: GF Yasiri Allergies No Known Allergies Allergy (Verified 11/26/23 10:19) Medication List - Last Reconciled 11/26/23 by David Yang MD cephalexin 500 mg PO Q6H 7 days ketorolac 10 mg PO TID PRN 5 days HPI Hemorrhoid external thrombosed HPI Details 27-year-old male referred by the ER for a thrombosed external hemorrhoid. He says that he went to the ER 2 days ago because of pain and swelling in his anus. He knows he has had hemorrhoids from before but he says that these really have not bothered him much. He says he may have been constipated a few days prior to that episode. He says that he was told he had a thrombosed hemorrhoid. He says that this was drained in the ER and he was instructed to see me. He says he feels much better. He is able to sit down comfortably now. He still notices small amounts of blood but this has improved significantly. [facility] Medical History Renal colic No known health problems Surgical History No history of previous surgery Social History Alcohol intake: never Patient Tobacco Use Status: Never used Tobacco Review of Systems Const Denies chills and Denies fever(s) Card Denies chest pain, Denies dyspnea and Denies dyspnea on exertion Resp Denies cough, Denies dyspnea and Denies dyspnea on exertion GI Denies hematochezia and Denies change in bowel habits Denies hematuria and Denies difficulty urinating Musc Denies back pain and Denies limited range of motion Neuro Denies focal weakness and Denies convulsions Psych Denies depression and Denies mood swings Physical Exam Vital Signs: Last Vital Signs Pulse 69 11/26/23 10:16 BP 151/71 H 11/26/23 10:16 BMI result Body Mass Index 35.6 Const General: comfortable and no acute distress Orientation/consciousness: patient oriented x3 Neck Neck: Yes no lymphadenopathy Resp Auscultation: clear to auscultation bilaterally Cardio Rhythm: regular rhythm GI Other: Rectal exam shows a thrombosed hemorrhoid, external, on the right, nontender this time, no signs of infection Palpation (GI): Soft to palpation, nontender and no guarding Neuro General: patient oriented x3 Assessment & Plan Assessment & Plan (1) Hemorrhoids, external, thrombosed: Code(s): K64.5 - Perianal venous thrombosis Plan: He had a large thrombosed external hemorrhoid and this had been drained in the ER. He currently meets feels much better. He still has some residual hemorrhoid swelling and mass. I told him that he should do warm soaks or hot Sitz baths to hasten resorption of the thrombosed I did tell him that he is hemorrhoids may be symptomatic down the line. He was advised on avoiding straining and constipation. I also told him that if he has significant issues with the hemorrhoids, he is welcome to come back to the office in the future. He is comfortable with the plan. Coding Level of Care Code New Pt Level 3 (20407) Diagnoses Hemorrhoids, external, thrombosed K64.5
[2023-11-26 10:16] VITALS: BP 151/71; PULSE 69; BMI 35.6
== END 2023-11-26 10:45 | disposition home or self-care (01) ==
PROVIDERS: Visit Provider Surgery
DX: K64.5 Perianal venous thrombosis (principal)
CPT/HCPCS: 99203

== ENCOUNTER → 2023-11-26 10:11 | Outpatient (BNVA) | payer OTHER, SELFPAY | PROVIDERS: Visit Provider Surgery | DX: K64.5 Perianal venous thrombosis (principal) | CPT/HCPCS: 99202 ==

== ENCOUNTER 2025-03-11 11:55 | Emergency (ER) | payer OTHER, SELFPAY ==
--- NOTE | ~2025-03-11 | XR_ITS ---
CLINICAL HISTORY: right shoulder pain, atraumatic 3 view right shoulder Comparison: None provided Findings: Bones intact. No dislocations. No significant loss of joint space or osteophytes. Well corticated ossific focus projects over the superior aspect of the glenohumeral joint, measuring 10 mm. No erosions. No radiopaque foreign body. IMPRESSION: 1. No acute findings 2. Possible intra-articular loose body. This could be further assessed with nonemergent outpatient follow-up MRI, if clinically indicated. This document has been electronically signed by: Onofre Sal MD on 03/11/2025 13:12:36
[2025-03-11 11:58] VITALS: BP 145/79; PULSE 80; RESP 16; TEMP 36.9; O2SAT 98; BMI 35.2
--- NOTE | 2025-03-11 12:01 | ED_ITS ---
HPI - General Adult General Chief complaint: Headache Stated complaint: headache and shoulder pain Time Seen by Provider: 03/11/25 12:11 Source: patient Mode of arrival: ambulatory Limitations: no limitations History of Present Illness ED Provider: Sylvie Shaikh NP HPI narrative: Patient is a 29-year-old male who presents emergency department for evaluation of a few complaints. He reports approximately 2 weeks ago he was ill with upper respiratory symptoms and nonproductive cough, was having intermittent chest discomfort associated with the cough. He denies chest pain at this time, cough has nearly resolved, no shortness of breath no fevers or chills. Over the past 3 days he has been experiencing pain to his right shoulder diffusely throughout the shoulder at times radiating down his arm. He typically notices it at night it has on occasion has been him up from sleep. He also has been experiencing headache over the past few days typically presenting in the morning, right- sided. Denies dizziness, lightheadedness, vision changes, pain, neck stiffness, chest pain, shortness of breath and difficulty breathing, numbness or tingling of the extremities, fevers, chills Related Data Previous Rx's ?Medication ?Instructions ?Recorded cephalexin 500 mg tablet 500 mg PO Q6H 7 days #28 tab s 11/24/23 ketorolac 10 mg tablet 10 mg PO TID PRN pain 5 days #15 11/24/23 tabs lidocaine 5 % topical patch 1 patch topical DAILY #30 ea 03/11/25 Allergies Allergy/AdvReac Type Severity Reaction Status Date / Time No Known Allergies Allergy Verified 03/11/25 11:58 Review of Systems Review of Systems: Yes all other systems are reviewed and are negative PMFSH Past Medical History Attestation statement: The following information was validated with the patient. Source: old records reviewed Medical History Renal colic No known health problems Surgical History No history of previous surgery Social History Social History Alcohol intake: never Patient Tobacco Use Status: Never used Tobacco Advance Directives: No Advance Directives Information Provided: Yes Physical Exam ED Vital Signs: Vital Signs - 24 hr 03/11/25 11:58 Temperature 98.4 F Pulse Rate 80 Respiratory Rate 16 Blood Pressure 145/79 H Pulse Oximetry 98 Oxygen Delivery Method Room Air BMI result Body Mass Index 35.2 Appearance: Alert.?Oriented to person, place and time. No acute distress.?Normal affect. Eyes: Pupils equal, round and reactive to light.? EOMI. No nystagmus. ENT: Pharynx normal.?? Neck: Normal inspection.? Neck supple.??Full range of motion. Exacerbation of pain to shoulder with rotation of head and lateral neck flexion. Tenderness upon palpation to right SCM/trapezius. CVS: Heart sounds normal. Normal heart rate and rhythm.? Pulses normal.?? Respiratory: No respiratory distress.? Lung sounds clear to auscultation bilaterally?? Abdomen: Soft and non-tender. Normoactive bowel sounds. Skin: Skin warm and dry.? Normal skin color.? Extremities: No extremity edema. Full range of motion to the right shoulder including external rotation. Neer and Mai negative. No erythema or warmth. No rashes or lesions Neuro: Moves all extremities spontaneously. Sensation intact bilaterally. Ambulates with normal steady gait. Course Course Course Narrative: Allison Rai APRN This is a rapid medical exam. Deferred additional HPI, ROS, PE to primary provider. 29 yo male with no known medical history here with multiple complaints for several weeks of right shoulder pain (intermittent), headache, cough. Will check shoulder x-ray, viral testing VSS Medical Decision Making Medical Decision Making MDM Narrative: Patient is a 29-year-old male presents emergency department for evaluation, primary concern today is the atraumatic right shoulder pain as well as his headache. He recently had URI symptoms with cough chest discomfort that has since resolved. LS CTA Matteo tachypnea or hypoxia no tachycardia he is afebrile. Viral serologies will be obtained. Suspect that the prior chest discomfort was secondary to costochondritis no risk factors for ACS. He has full range of motion to the shoulder the right upper extremities neurovascularly intact distally there is no erythema or warmth to suggest a septic arthritis no rashes or lesions to suggest viral exanthem shingles. He has tenderness upon palpation of the right SCM and trapezius muscle provocative pain to the shoulder with lateral neck flexion and associated headache. I suspect that his pain is primarily muscular in nature with the associated tension headache. I discussed this with the patient in depth, reviewed conservative treatment, use of NSAIDs/acetaminophen, consideration of purchasing a new pillow as he is primarily a side sleeper. 3 view right shoulder Comparison: None provided Findings: Bones intact. No dislocations. No significant loss of joint space or osteophytes. Well corticated ossific focus projects over the superior aspect of the glenohumeral joint, measuring 10 mm. No erosions. No radiopaque foreign body. IMPRESSION: 1. No acute findings 2. Possible intra-articular loose body. This could be further assessed with nonemergent outpatient follow-up MRI, if clinically indicated. Will send patient with a referral for Orthopedics and outpatient follow-up Differential Diagnosis Differential Diagnoses: The differential diagnosis associated with the presentation includes (See narrative above) Lab Data MDM Lab Attestation statement: I reviewed the patient's lab results. Viral serologies are negative Labs: Lab Results 03/11/25 Range/Units 12:13 Influenza Type A (PCR) NEGATIVE (Negative) Influenza Type B (PCR) NEGATIVE (Negative) RSV RNA Qual (PCR) NEGATIVE (Negative) SARS-CoV-2 RNA (RT-PCR) NEGATIVE (Negative) Independent Interpretation I performed an independent interpretation of an: Plain X-Ray (No acute fracture or dislocation to the right shoulder.) Radiology Impression Discussion of test interpretation with radiology: I have reviewed the radiologist's reading. (See above) Independent Historian Clinical information obtained from an independent historian. History obtained from or confirmed by: Spouse External Record Review External record reviewed: Outpatient record Prescription Management I considered prescription management with: Pain Medication Discharge Plan Discharge Clinical Impression: Tension headache, Abnormal x-ray of shoulder Right shoulder strain Qualifiers: Encounter type: initial encounter Qualified Code(s): S46.911A - Strain of unspecified muscle, fascia and tendon at shoulder and upper arm level, right arm, initial encounter Patient Disposition: Home, Self-Care Instructions: Muscle Strain (ED), Tension Headache (ED) Additional Instructions: Rest, apply ice/heat for 10-15 minutes 4-6 times daily. You can take ibuprofen 200 mg, 3 tablets (600mg) every 6-8 hours as needed for pain, in addition to Tylenol 500 mg, 2 tablets (1,000mg) every 4-6 hours as needed for pain, but not to exceed 3 doses daily (3,000mg).? Apply Lidoderm patch to area of pain leave on for 12 hours and remove for 12 hour period to prevent any skin irritation. Consider purchasing a new pillow especially has a side sleeper as this can sometimes make a significant difference with muscular related pain and tension headaches such as you are experiencing. While the x-ray of the shoulder did not show any evidence of fracture or dislocation. There was potential for a foreign body visualized within the shoulder joint, does not exactly clear what this may be at this time, recommending that you follow-up outpatient orthopedic syncope in the further evaluate and consider MRI if they feel necessary. 3 view right shoulde IMPRESSION: 1. No acute findings 2. Possible intra-articular loose body. This could be further assessed with nonemergent outpatient follow-up MRI, if clinically indicated. Return to emergency department any new or worsening symptoms or concerns as necessary. Prescriptions: New lidocaine 5 % adhesive patch,medicated 1 patch topical DAILY Qty: 30 0RF Rx Instructions: leave on most painful area for up to 12 hrs No Action ketorolac 10 mg tablet 10 mg PO TID PRN (Reason: pain) 5 Days Qty: 15 0RF cephalexin 500 mg tablet 500 mg PO Q6H 7 Days Qty: 28 0RF Referrals: Tlyer Hatfield MD [Primary Care Provider, Medical] [facility] [Provider Group] Print Language: Frisian
[2025-03-11 13:00] LABS: Influenza A PCR NEGATIVE (Negative); Influenza B PCR NEGATIVE (Negative); Resp Syncy Virus RNA Qual PCR NEGATIVE (Negative); SARS COV2 PCR INHOUSE NEGATIVE (Negative)
[2025-03-11 14:00] VITALS: BP 134/79; PULSE 71; RESP 16; TEMP 36.8; O2SAT 100
[2025-03-11 14:10] VITALS: BP 134/79; PULSE 71; RESP 16; TEMP 36.8; O2SAT 100
== END 2025-03-11 14:11 | disposition home or self-care (01) ==
PROVIDERS: Nurse Practitioner Family; Emergency Provider Emergency Medicine; PCP Internal Medicine
DX: S43.401A Unspecified sprain of right shoulder joint, initial encounter (principal); R51.9 Headache, unspecified; R07.89 Other chest pain; R05.9 Cough, unspecified; X58.XXXA Exposure to other specified factors, initial encounter; Y93.9 Activity, unspecified; Y92.9 Unspecified place or not applicable; Y99.8 Other external cause status; Z03.818 Encounter for observation for suspected exposure to other biological agents ruled out
CPT/HCPCS: 0241U; 73030; 99283

== ENCOUNTER → 2025-03-11 12:03 | Outpatient (BNV) | payer OTHER, SELFPAY | PROVIDERS: Emergency Provider Emergency Medicine; PCP Internal Medicine; Visit Provider Radiology Diagnostic Radiology | DX: M25.511 Pain in right shoulder (principal) | CPT/HCPCS: 73030 ==

== ENCOUNTER 2025-03-30 11:13 | Emergency (ER) | payer OTHER, SELFPAY ==
--- NOTE | ~2025-03-30 | XR_ITS ---
EXAMINATION: XR CHEST CLINICAL INFORMATION: chest pain on L COMPARISON: None available. TECHNIQUE: 2 views of the chest were obtained. FINDINGS: No significant abnormality is noted involving the heart, lungs, mediastinum, bony thorax or soft tissues. XR/XR chest 2V IMPRESSION: No acute disease Electronically signed by: Bienvenido Gabriel MD 03/30/2025 01:12 PM EDT RP
[2025-03-30 11:27] VITALS: BP 148/84; PULSE 77; RESP 16; TEMP 36.3; O2SAT 100; BMI 35.0
--- NOTE | 2025-03-30 11:30 | ECG_ITS ---
Test Reason : CHEST PAIN Blood Pressure : */* mmHG Vent. Rate : 78 BPM Atrial Rate : 78 BPM P-R Int : 152 ms QRS Dur : 114 ms QT Int : 370 ms P-R-T Axes : 58 65 45 degrees QTcB Int : 421 ms Normal sinus rhythm Incomplete right bundle branch block Borderline ECG No previous ECGs available Referred By: Candice De Los Santos Electronically Signed By: SCOTT CARRERO
--- NOTE | 2025-03-30 11:30 | ED_ITS ---
HPI - General Adult General Chief complaint: Chest Pain Stated complaint: left arm pain sob Time Seen by Provider: 03/30/25 16:01 Source: patient Mode of arrival: ambulatory Limitations: no limitations History of Present Illness ED Provider: Lidia Munroe PA-C HPI narrative: Patient is a 29 year old assigned male at with no reported medical history presenting to the emergency department today with left sided chest and arm pain with associated shortness of breath that is now resolved. Patient states that he has been having brief episodes of left sided chest and arm pain with shortness of breath that last a maximum of 20 minutes and resolve on their own. Patient denies any tobacco use or recent travel. Patient denies any dizziness, lightheadedness, abdominal pain, nausea, vomiting, fever, chills, blurry vision, double vision, loss of vision, back pain, night sweats, pain with urination, increased urinary frequency, increased urinary urgency, blood in his urine or stool, syncope or a near syncopal episode, recent trauma or falls, bowel incontinence, bladder incontinence, or any other complaints at this time. Relieving factors: none Exacerbating factors: none Treatments prior to arrival: none Related Data Previous Rx's ?Medication ?Instructions ?Recorded cephalexin 500 mg tablet 500 mg PO Q6H 7 days #28 tab s 11/24/23 ketorolac 10 mg tablet 10 mg PO TID PRN pain 5 days #15 11/24/23 tabs lidocaine 5 % topical patch 1 patch topical DAILY #30 ea 03/11/25 Allergies Allergy/AdvReac Type Severity Reaction Status Date / Time No Known Allergies Allergy Verified 03/30/25 11:30 Review of Systems 2 Constitutional: Constitutional: Reports no additional constitutional complaints, Denies chills, Denies fever(s) and Denies night sweats Eyes: Eyes: Reports no additional eye complaints, Denies blurry vision, Denies change in vision, Denies diplopia, Denies eye discharge, Denies loss of vision and Denies eye pain ENT: Denies dizziness Cardiovascular: Cardiovascular: Reports no additional cardiovascular complaints, Reports chest pain (now resolved), Denies lightheadedness, Denies Loss of Consciousness and Reports dyspnea (now resolved) Respiratory: Respiratory: Reports no additional respiratory complaints and Reports dyspnea (now resolved) Gastrointestinal: Gastrointestinal: Reports no additional gastrointestinal complaints, Denies abdominal pain, Denies melena, Denies hematochezia, Denies change in bowel habits and Denies change in stool character Genitourinary: Genitourinary: Reports no additional male genitourinary complaints, Denies hematuria, Denies oliguria, Denies difficulty urinating, Denies dysuria, Denies urinary frequency, Denies urinary hesitancy, Denies urinary incontinence and Denies urinary urgency Musculoskeletal: Musculoskeletal: Reports no additional musculoskeletal complaints, Denies numbness and Denies tingling Neurologic: Denies dizziness, Denies loss of vision, Denies numbness and Denies tingling Psychiatric: Psychiatric: Reports no additional psychiatric complaints Endocrine: Endocrine: Reports no additional endocrine complaints Hematologic/Lymphatic: Hematologic/Lymphatic: Reports no additional hematologic/lymphatic complaints Allergic/Immunologic: Allergic/Immunologic: Reports no additional allergic/immunologic complaints PMFSH Past Medical History Attestation statement: The following information was validated with the patient. Source: old records reviewed and nursing notes reviewed Medical History Renal colic No known health problems Surgical History No history of previous surgery Social History Social History Alcohol intake: never Patient Tobacco Use Status: Never used Tobacco Advance Directives: No Advance Directives Information Provided: No Do you have a plan to hurt others: No Plan Physical Exam ED Vital Signs: Vital Signs - 24 hr 03/30/25 11:27 03/30/25 17:29 Temperature 97.4 F 98.4 F Pulse Rate 77 70 Respiratory Rate 16 20 Blood Pressure 148/84 H 133/74 Pulse Oximetry 100 100 Oxygen Delivery Method Room Air Room Air BMI result Body Mass Index 35.0 Const General: cooperative, no acute distress, alert and awake Nutritional Appearance: well nourished Orientation/consciousness: patient oriented x3 HENMT Head: Yes normal to inspection and Yes atraumatic Ears: hearing grossly normal bilaterally and external ears normal General nose exam: Normal external nose present, no nasal discharge noted and no epistaxis Face and sinus: Yes normal facial exam, No abrasion and No laceration Mouth: Normal oral and palatal mucosa present, no drooling and no muffled voice Eyes General: appearance normal, both eyes and all related structures Periorbital: periorbital findings normal Eyelids: Yes eyelids normal Conjunctivae: conjunctivae normal Pupils: Equal, round and reactive pupils present EOM: EOMs intact bilaterally Neck Neck: Yes normal visual inspection, Yes full ROM and Yes no lymphadenopathy Resp Effort & Inspection: normal respiratory effort and able to speak in complete sentences Neuro General: patient oriented x3, moves all extremities and CN's II-XI intact bilaterally Cranial nerves: Yes Equal, round and reactive pupils present Cognition (Neuro): normal cognition Extrem General: Yes normal to inspection, Yes full ROM and Yes capillary refill normal Psych Appearance: grossly normal Mental Status: mental status grossly normal Affect: normal affect Attitude: cooperative Thought process: Normal thought process present Thought content: Normal thought content present Insight: Good insight present (Psych) Course Course Course Narrative: This is a rapid medical exam performed by Ismael De Los Santos NP: Additional HPI, ROS, PE not included below will be deferred to primary provider. Patient is a 29-year-old male presenting to the emergency department with complaint of intermittent left-sided chest pain radiating to left arm for the past few days. States pain occurred while at rest. Denies any recent strenuous activity. Complains of some shortness of breath. Had a cough 3 weeks ago. Plan: EKG, labs, chest x-ray Medical Decision Making Medical Decision Making MDM Narrative: Patient is a 29 year old assigned male at with no reported medical history presenting to the emergency department today with left sided chest and arm pain with associated shortness of breath that is now resolved. Patient's physical exam was unremarkable. Patient's blood work was unremarkable. Patient's EKG was unremarkable. Patient's chest x-ray showed no acute process. I explained my physical exam findings as well as all test results to the patient. I answered all questions asked by the patient. I stressed the importance of the patient taking his medication as directed (either prescribed or as the over the counter packaging recommends). I stressed the importance of the patient following up with his primary care provider. I stressed the importance of the patient returning to the emergency department immediately if his symptoms were to worsen or if he were to develop any dizziness, shortness of breath, difficulty breathing, chest pain, blurry vision, loss of vision, nausea, vomiting, abdominal pain, fever, chills, back pain, or any other complaints. Patient verbalized agreement and understanding with this treatment plan and discharge. >> sign-out was given to me pending D-dimer. This is negative. Patient well- appearing, patient discharge. Differential Diagnosis Differential Diagnoses: The differential diagnosis associated with the presentation includes STEMI NSTEMI Chest pain Pleuritic chest pain Costochondritis Admission/Observation Consideration of admission/observation: Escalation of care including admission/observation considered Patient would have been admitted to the hospital had his work up had any findings where hospital admission was appropriate and his clinical presentation warranted hospital admission. Lab Data [facility] Lab Attestation statement: I reviewed the patient's lab results. My interpretation of these results are in the [facility] Rationale portion of this note. 03/30/25 12:00 03/30/25 12:00 Labs: Lab Results 03/30/25 03/30/25 03/30/25 Range/Units 11:58 12:00 17:12 WBC 5.1 (4.8-10.8) X10*3/uL RBC 4.71 (4.60-5.80) X10*6/uL Hgb 14.3 (14.0-18.0) g/dl Hct 39.8 L (42.0-52.0) % MCV 84.5 (80.0-98.0) fL MCH 30.4 (27.0-33.0) pg MCHC 35.9 (31.0-36.0) g/dl RDW 11.9 (11.0-16.0) % Plt Count 312 (160-400) X10*3/uL MPV 9.8 (9.4-12.4) fL Immature Gran % (Auto) 0.2 (0.0-0.4) % Neut % (Auto) 50.8 (45-73) % Lymph % (Auto) 39.5 (20-40) % Hamblen % (Auto) 7.1 (2-11) % Eos % (Auto) 1.8 (0-4) % Baso % (Auto) 0.6 (0-2) % Lymph # (Auto) 2.0 (1.2-4.9) X10*3/uL Hamblen # (Auto) 0.4 (0.1-1.2) X10*3/uL Eos # (Auto) 0.1 (0.0-0.4) X10*3/uL Baso # (Auto) 0.0 (0.0-0.2) X10*3/uL Abs Immat Gran (auto) 0.01 (0.00-0.03) X10*3/uL Absolute Neuts (auto) 2.6 (2.0-8.3) x10*3/uL Absolute Nucleated RBC 0.000 (0.0-0.012) X10*3/uL Nucleated RBC % (auto) 0.0 (0.0-0.2) /100WBC D-Dimer High Sensitivty < 150 NG/ML Sodium 141 (135-145) mmol/L Potassium 3.9 (3.3-5.1) mmol/L Chloride 107 (96-108) mmol/L Carbon Dioxide 26 (22-29) mmol/L Anion Gap 12 (12-20) BUN 13 (9-16) mg/dL Creatinine 0.97 (0.5-1.4) mg/dL Estim Creat Clear Calc 132.7 Estimated GFR > 60 Random Glucose 94 (60-115) mg/dL Calcium 9.3 (8.4-10.2) mg/dL Total Bilirubin 0.4 (0.0-1.0) mg/dL AST 27 (5-37) U/L ALT 43 H (0-40) U/L Alkaline Phosphatase 76 (39-117) U/L Total Protein 7.5 (6.5-8.0) g/dL Albumin 4.7 (3.5-5.0) g/dL Influenza Type A (PCR) NEGATIVE (Negative) Influenza Type B (PCR) NEGATIVE (Negative) RSV RNA Qual (PCR) NEGATIVE (Negative) SARS-CoV-2 RNA (RT-PCR) NEGATIVE (Negative) Independent Interpretation I performed an independent interpretation of an: EKG and Plain X-Ray Interpretation: My interpretation is in agreement with the radiologist's impression of this imaging study. L EXAMINATION: XR CHEST CLINICAL INFORMATION: chest pain on L COMPARISON: None available. TECHNIQUE: 2 views of the chest were obtained. FINDINGS: No significant abnormality is noted involving the heart, lungs, mediastinum, bony thorax or soft tissues. XR/XR chest 2V IMPRESSION: No acute disease Electronically signed by: Bienvenido Gabriel MD 03/30/2025 01:12 PM EDT RP Dictated By: Bienvenido Gabriel MD Signed By: Electronically signed by Bienvenido Gabriel MD 03/30/25 1312 Vent. Rate: 78 BPM Atrial Rate: 78 BPM P-R Int: 152 ms QRS Dur: 114 ms QT Int: 370 ms P-R-T Axes: 58 65 45 degrees QTcB Int: 421 ms Normal sinus rhythm Incomplete right bundle branch block Borderline ECG No previous ECGs available DD/ 1152 Radiology Impression Discussion of test interpretation with radiology: I have reviewed the radiologist's reading. Discharge Plan Discharge Clinical Impression: Atypical chest pain Patient Disposition: Home, Self-Care Additional Instructions: Your work up today was reassuring that you do not have any emergent process causing your symptoms. Follow up with your primary care provider. Return to the emergency department immediately if your symptoms worsen or if you develop any numbness, tingling, dizziness, shortness of breath, difficulty breathing, chest pain, blurry vision, loss of vision, nausea, vomiting, abdominal pain, fever, chills, back pain, or any other complaints. Please see the information below about our Patient Portal. If you are not yet enrolled in the [facility] Patient Portal, you will receive an enrollment email invitation following your visit to any [facility] care setting. You may also self-enroll in the Patient Portal by visiting our website: [email or web address] The following information is required to access the Patient Portal: - Your [facility] Medical Record Number - Your personal home email address (must match what is in your electronic medical record, Registration staff can assist with this) - Name - Date of Capabilities of the Patient Portal: - Message some providers - View upcoming appointments - Access your health summary, medical history, and visit history - View current conditions and allergies - View procedure and lab results - View your medications, including guidelines, side effects, and precautions - Complete pre-appointment questionnaires requested by your provider - Ready summary reports of your office visits and procedures To access the Patient Portal Mobile [employer], follow these directions: - Search [employer] in the [employer] Store or Google Play Store - Download the [place] - Search for [facility] - Enter your login/password Prescriptions: No Action lidocaine 5 % adhesive patch,medicated 1 patch topical DAILY Qty: 30 0RF Rx Instructions: leave on most painful area for up to 12 hrs ketorolac 10 mg tablet 10 mg PO TID PRN (Reason: pain) 5 Days Qty: 15 0RF cephalexin 500 mg tablet 500 mg PO Q6H 7 Days Qty: 28 0RF Referrals: Tyler Hatfield MD [Primary Care Provider, Medical] Print Language: Swedish
[2025-03-30 12:05] LABS: MANUAL DIFF FLAG NO
[2025-03-30 12:06] LABS: Hematocrit 39.8 % (42.0-52.0); Hemoglobin 14.3 g/dl (14.0-18.0); Imm Gran Abs Auto 0.01 X10*3/uL (0.00-0.03); Imm Gran Pct Auto 0.2 % (0.0-0.4); Lymphocytes Absolute Auto 2.0 X10*3/uL (1.2-4.9); Mean Corpuscular HGB Conc 35.9 g/dl (31.0-36.0); Mean Corpuscular Hemoglobin 30.4 pg (27.0-33.0); Mean Corpuscular Volume 84.5 fL (80.0-98.0); NRBC Abs Auto 0.000 X10*3/uL (0.0-0.012); NRBC Pct Auto 0.0 /100WBC (0.0-0.2); Platelet Count 312 X10*3/uL (160-400); Red Blood Count 4.71 X10*6/uL (4.60-5.80); White Blood Count 5.1 X10*3/uL (4.8-10.8)
[2025-03-30 12:23] LABS: Alanine Aminotransferase 43 U/L (0-40); Albumin Level 4.7 g/dL (3.5-5.0); Alkaline Phosphatase 76 U/L (39-117); Anion Gap 12 (12-20); Aspartate Amino Transferase 27 U/L (5-37); Blood Urea Nitrogen 13 mg/dL (9-16); Calcium 9.3 mg/dL (8.4-10.2); Carbon Dioxide 26 mmol/L (22-29); Chloride 107 mmol/L (96-108); Creatinine Clr Calc Pharmacy 132.7; Estimated Glomerular Filt Rate > 60; Potassium 3.9 mmol/L (3.3-5.1); Sodium 141 mmol/L (135-145); Total Protein 7.5 g/dL (6.5-8.0)
[2025-03-30 12:53] LABS: Resp Syncy Virus RNA Qual PCR NEGATIVE (Negative); SARS COV2 PCR INHOUSE NEGATIVE (Negative)
--- OUTSIDE RECORDS SUMMARY | 2025-03-30 16:47 | XMS_ITS | Encounter Summary ---
Author Organization [employer] Address [address] [facility] [address] [place] [address] Care Team Providers Care Record Cutter Name Role Phone Unavailable Primary Care Provider Unavailabl e Encounter Details Date Type Department Care Team (Late st Contact Info) Description 03/30/2025 Orders Only GENERIC EXTERNAL DATA DEPARTMENT Provider, Generic External Data Social History Tobacco Use Types Packs/Day Years Used Date Smoking Tobacco: Never Assessed Sex and Gender Information Value Date Recorded Sex Assigned at Not on file Legal Sex Male 11:57 AM EDT Gender Identity Not on file Sexual Orientation Not on file documented as of this encounter Plan of Treatment Not on file documented as of this encounter Procedures Procedure Name Priority Date/Time Associated Diagnosis Comments XR CHEST 2 VIEWS Routine 03/30/2025 1:05 PM EDT CBC WITH AUTO DIFFERENTIAL Routine 03/30/2025 12:00 PM EDT COMPREHENSIVE METABOLIC PANEL Routine 03/30/2025 12:00 PM EDT SARS COV2/INFLUENZA A/B AND RSV RNA QL NAAT Routine 03/30/2025 11:58 AM EDT documented in this encounter Results * XR Chest 2 Views (03/30/2025 1:05 PM EDT) Anatomical Region Laterality Modality Chest Radiographic Jessy ging 03/30/2025 1:05 PM EDT Narrative 03/30/2025 1:15 PM EDT [address] [address] XRay Report Signed Patient: Nolan Nicholson MR# : [id number] : 1995 Acct:[id number] Age/Sex: 29 / M ADM Date: 03/30/25 Loc: HO.ED Attending Dr: Ordering Physician: Candice De Los Santos NP Date of Service: 03/30/25 Procedure(s): XR chest 2V Accession Number(s): [id number] cc: Tyler Hatfield MD; Candice De Los Santos NP EXAMINATION: XR CHEST CLINICAL INFORMATION: chest pain on L COMPARISON: None available. TECHNIQUE: 2 views of the chest were obtained. FINDINGS: No significant abnormality is noted involving the heart, lungs, mediastinum, bony thorax or soft tissues. 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 TECHNIQUE: 2 views of the chest were obtained. FINDINGS: No significant abnormality is noted involving the heart, lungs, mediastinum, bony thorax or soft tissues. 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 General: us [facility] External Provider IMG XR PROCEDURES Edited Result - Final * (ABNORMAL) Comprehensive Metabolic Panel (03/30/2025 12:00 PM EDT) Sodium 141 135 - 145 mmol/L [facility] Potassium 3.9 3.3 - 5.1 mmol/L [facility] Chloride 107 96 - 108 mmol/L [facility] Carbon Dioxide 26 22 - 29 mmol/L [facility] Anion Gap 12 12 - 20 [facility] Urea Nitrogen (BUN) 13 9 - 16 mg/dL [facility] Creatinine, Serum 0.97 0.5 - 1.4 mg/dL [facility] Creatinine Clr Calc Pharmacy 132.7 [facility] Comment:eGFR (calculated fro m the MDRD study equation) and eCrCl(calculated from the Cockcroft-Gault equation) are based ondifferent parameters and may not yield comparable results.If eCrCl result is absurd, please check patient'sheight/weight. Estimated Glomerular Filt Rate >60 [facility] Comment:Chronic Kidney Disea se: Estimated GFR < 60 mL/min/1.61o4Vywjrs Kidney Disease: Estimated GFR < 15 mL/min/1.73m2 Glucose 94 60 - 115 mg/dL [facility] Calcium 9.3 8.4 - 10.2 mg/dL [facility] Bilirubin, Total 0.4 0.0 - 1.0 mg/dL [facility] Aspartate Amino Transferase 27 5 - 37 U/L [facility] Alanine Aminotransferase 43(H) 0 - 40 U/L [facility] Total Protein 7.5 6.5 - 8.0 g/dL [facility] Albumin Level 4.7 3.5 - 5.0 g/dL [facility] Alkaline Phosphatase 76 39 - 117 U/L [facility] 03/30/2025 12:0 0 PM EDT 03/30/2025 12:03 PM EDT us Generic External Data Provider LAB BLOOD ORDERAB LES Final Result [facility] [address] [place] [phone] [phone] * (ABNORMAL) CBC auto differential (03/30/2025 12:00 PM EDT) White Blood Count 5.1 4.8 - 10.8 X10*3/uL [facility] Red Blood Count 4.71 4.60 - 5.80 X10*6/uL [facility] Hemoglobin 14.3 14.0 - 18.0 g/dl [facility] Hematocrit 39.8(L) 42.0 - 52.0 % [facility] Mean Corpuscular Volume 84.5 80.0 - 98.0 fL [facility] Mean Corpuscular Hemoglobin 30.4 27.0 - 33.0 pg [facility] Mean Corpuscular HGB Conc 35.9 31.0 - 36.0 g/dl [facility] Red Cell Distribution Width 11.9 11.0 - 16.0 % [facility] Platelet Count 312 160 - 400 X10*3/uL [facility] Mean Platelet Volume 9.8 9.4 - 12.4 fL [facility] Neutrophils Percent Auto 50.8 45 - 73 % [facility] Imm Gran Pct Auto 0.2 0.0 - 0.4 % [facility] Lymphocytes Percent Auto 39.5 20 - 40 % [facility] Monocytes Percent Auto 7.1 2 - 11 % [facility] Eosinophils Percent Auto 1.8 0 - 4 % [facility] Basophils Percent Auto 0.6 0 - 2 % [facility] NRBC Pct Auto 0.0 0.0 - 0.2 /100WBC [facility] Neutrophils Absolute Auto 2.6 2.0 - 8.3 x10*3/uL [facility] Imm Gran Abs Auto 0.01 0.00 - 0.03 X10*3/uL [facility] Lymphocytes Absolute Auto 2.0 1.2 - 4.9 X10*3/uL [facility] Monocytes Absolute Auto 0.4 0.1 - 1.2 X10*3/uL [facility] Eosinophils Absolute Auto 0.1 0.0 - 0.4 X10*3/uL [facility] Basophils Absolute Auto 0.0 0.0 - 0.2 X10*3/uL [facility] NRBC Abs Auto 0.000 0.0 - 0.012 X10*3/uL [facility] 03/30/2025 12:0 0 PM EDT 03/30/2025 12:03 PM EDT us Generic External Data Provider LAB BLOOD ORDERAB LES Final Result [facility] [address] [place] [phone] [phone] * SARS-CoV-2 RNA, Influenza A/B, and RSV RNA, Ql NAAT (03/30/2025 11:58 AM EDT) Influenza A PCR NEGATIVE Negative [facility] Influenza B PCR NEGATIVE Negative [facility] Resp Syncy Virus RNA Qual PCR NEGATIVE Negative [facility] SARS COV2 PCR NEGATIVE Negative [facility] Comment:All test results mus t be correlated with clinical findings.Negative results do not preclude SARS-CoV2, influenza Avirus, influenza B virus and/or RSV infectionand should not be used as the sole basis for treatment orother patient management decisions. Negative results must becombined with clinical observations, patient history, andepidemiological information.This test has not been evaluated for monitoring treatment ofinfection.This test has been authorized by the FDA under an EmergencyUse Authorization (EUA) for use by authorized laboratories.Testing performed on the [employer] GeneXpert utilizingreal-time RT-PCR.All SARS CoV2 and positive influenza A/B results arereported to [facility]. 03/30/2025 11:5 8 AM EDT 03/30/2025 12:04 PM EDT us Generic External Data Provider LAB MICROBIOLOGY - GENERAL ORDERABLES Final Result [facility] [address] [place] [phone] documented in this encounter Visit Diagnoses Not on filedocumented in this encounter
[2025-03-30 17:29] VITALS: BP 133/74; PULSE 70; RESP 20; TEMP 36.9; O2SAT 100
[2025-03-30 17:36] LABS: D Dimer High Sensitivity < 150 NG/ML
[2025-03-30 18:18] VITALS: BP 133/74; PULSE 70; RESP 20; TEMP 36.9; O2SAT 100
== END 2025-03-30 18:19 | disposition home or self-care (01) ==
PROVIDERS: Physician Assistant Medical; Registered Nurse Emergency; Emergency Provider Emergency Medicine; PCP Internal Medicine
DX: R07.89 Other chest pain (principal); M79.602 Pain in left arm; R06.02 Shortness of breath; Z03.818 Encounter for observation for suspected exposure to other biological agents ruled out; Z79.899 Other long term (current) drug therapy
CPT/HCPCS: 36415; 71046; 80053; 85025; 85379; 87637; 93005; 99283; 99285

== ENCOUNTER → 2025-03-30 11:30 | Outpatient (BNV) | payer OTHER, SELFPAY | PROVIDERS: Emergency Provider Emergency Medicine; PCP Internal Medicine; Visit Provider Internal Medicine | DX: I45.10 Unspecified right bundle-branch block (principal) | CPT/HCPCS: 93010 ==

== ENCOUNTER → 2025-03-30 11:30 | Outpatient (BNV) | payer OTHER, SELFPAY | PROVIDERS: PCP Internal Medicine; Visit Provider Radiology Diagnostic Radiology | DX: R07.89 Other chest pain (principal) | CPT/HCPCS: 71046 ==

== ENCOUNTER 2025-06-14 08:01 | Outpatient (AMB) | payer OTHER, SELFPAY ==
--- NOTE | 2025-06-14 08:07 | MHC.OFFVIS ---
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 The patient states that several months ago he went to the emergency room after sleeping with his arm in a ?funny position? over his head. He had shoulder pain at that time. The patient states that his pain has gotten significantly better. He denies any mechanical symptoms. 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 He states that he was referred here for possible right shoulder MRI. 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 Physical Exam Vital Signs: BMI result Body Mass Index 35.0 Const Other: Well-nourished well-developed very friendly male awake alert and oriented x3 in no acute distress Extrem Other: Right shoulder examination shows full range of motion when compared to his left shoulder, 5/5 strength with supraspinatus testing, no crepitus, no instability Results Reviewed Results Reviewed: X-rays of the patient's right shoulder show mild acromioclavicular joint narrowing, a type 2 acromion, a small loose body which appears anterior to the shoulder joint, it does not appear to be intra-articular Assessment & Plan Assessment & Plan (1) Right shoulder pain: Code(s): M25.511 - Pain in right shoulder Category: Medical Plan Mr. Oscar Swanson presents with right shoulder pain most likely due to tendinosis and impingement syndrome which has mostly resolved over the last 2 months. The loose body seen on the x-ray is most likely an incidental finding. I did discuss with the patient the possibility of getting a right shoulder MRI to further evaluate the location of the loose body. The patient wishes to hold off on the MRI for now because he has minimal symptoms. If his symptoms do worsen he will contact me so that I may order the MRI. Feel free to call me at any time should questions regarding his orthopedic management arise. Thank you very much for asking me to see this very friendly gentleman. I spent 22 minutes in reviewing the patient's records and imaging studies, seeing the patient and documenting in the medical record. Coding Level of Care Code New Pt Level 3 (40136) Complex EM visit Add On G2211 Diagnoses Right shoulder pain M25.511
--- OUTSIDE RECORDS SUMMARY | 2025-06-14 08:07 | XMS_ITS ---
Author Name [facility] Organization Unknown Care Team Organization Name Specialty Phone Email Start Date End Da te [facility] Fernando Escamilla [facility] 07/22/20222023
--- OUTSIDE RECORDS SUMMARY | 2025-06-14 08:07 | XMS_ITS | Clinical Summary ---
Author Organization [employer] Address [address] [facility] [address] [place] [address] Care Team Providers Care Physical Integration Practitioner Name Role Phone Unavailable Primary Care Provider Unavailabl e Encounters Date Type Department Care Team Description 04/18/[address] [facility] [address] [place] [phone] Tyler Reyes MD Call Back Request 03/30/2025 Orders Only GENERIC EXTERNAL DATA DEPARTMENT Provider, Generic External Data 03/28/[address] [facility] [address] [place] [phone] Tyler Reyes MD from Last 3 Months Social History Tobacco Use Types Packs/Day Years Used Date Smoking Tobacco: Never Assessed Sex and Gender Information Value Date Recorded Sex Assigned at Not on file Legal Sex Male 11:57 AM EDT Gender Identity Not on file Sexual Orientation Not on file Plan of Treatment Upcoming Encounters Date Type Department Care Team (Late st Contact Info) Description 06/21/2025 2:00 PM EDT Office Visit [facility] [address] [place] [phone] Kelly Zelaya NP [address] [place] [address] Health Maintenance Due Date Last Done Comments Depression Screening 1996 HIV Screening 1996 SDOH Screening 1996 Disability Screening 1996 Alcohol/Substance Use Screening 2008 Tobacco Screening 2008 Family Planning (PISQ) 12/01/2011 Hepatitis C Screening 2014 COVID-19 Vaccine ( season) 2025 03/16/2021, 02/02/2021 Influenza Vaccine (#1) 2025 , 06/23/2014, 07/29/2010 DTaP/Tdap/Td Vaccines (8 - Td or Tdap) 08/08/2030 08/08/2020, 03/06/2008, 01/07/2002, Additional history exists Zoster Vaccines (1 of 2) 2046 RSV Patients and Patients Aged 60 years or older (1 - 1-dose 75+ series) 12/01/2071 Hepatitis B Vaccines Completed 09/25/1997, 01/16/1997, 1996 HIB Vaccines Completed 1998, 09/14, 04/13/1997, Additional history exists IPV Vaccines Completed 01/07/2002, 11/12, 04/13/1997, Additional history exists Meningococcal Vaccine Completed 06/23/2014, 010 HPV Vaccines Completed 11/28/2014, 08/14, 06/23/2014 Hepatitis A Vaccines Aged Out No long er eligible based on patient's age to complete this topic Meningococcal B Vaccine Aged Out No l onger eligible based on patient's age to complete this topic Pneumococcal Vaccine: Pediatrics (0 to 5 Years) and At-Risk Patients (6 to 49) Years Aged Out No longer eligible based on patient's age to complete this topic RSV under 20 months Aged Out No longe r eligible based on patient's age to complete this topic Rotavirus Vaccines Aged Out No longer eligible based on patient's age to complete this topic Procedures Procedure Name Priority Date/Time Associated Diagnosis Comments D DIMER HIGH SENSITIVITY Routine 03/30/2025 5:12 PM EDT XR CHEST 2 VIEWS Routine 03/30/2025 1:05 PM EDT COMPREHENSIVE METABOLIC PANEL Routine 03/30/2025 12:00 PM EDT CBC WITH AUTO DIFFERENTIAL Routine 03/30/2025 12:00 PM EDT SARS COV2/INFLUENZA A/B AND RSV RNA QL NAAT Routine 03/30/2025 11:58 AM EDT from Last 3 Months Results * D Dimer High Sensitivity (03/30/2025 5:12 PM EDT) D Dimer High Sensitivity <150 NG/ML [facility] Comment:D-DIMER HS REFERENCE RANGENote: Our assay reports D-Dimer Units (D- DU).The cut-off value for venous thromboembolic (VTE) disease is230 ng/mL. This value has a very high negative predictivevalue when the patient has a low to moderate clinicalprobability of VTE.The upper limit of normal is 243 ng/mL. 03/30/2025 5:12 PM EDT 03/30/2025 5:15 PM EDT us Generic External Data Provider LAB BLOOD ORDERAB LES Final Result Performing Organization Address City/State/[facility] Co de Phone Number [facility] [address] [place] [phone] * XR Chest 2 Views (03/30/2025 1:05 PM EDT) Anatomical Region Laterality Modality Chest Radiographic Jessy ging 03/30/2025 1:05 PM EDT Narrative 03/30/2025 1:15 PM EDT [address] [address] XRay Report Signed Patient: Nolan Nicholson MR# : [id number] : 1995 Acct:[id number] Age/Sex: 29 / M ADM Date: 03/30/25 Loc: .ED Attending Dr: Ordering Physician: Candice De Los Santos NP Date of Service: 03/30/25 Procedure(s): XR chest 2V Accession Number(s): [id number] cc: Tyler Hatfield MD; Candice De Los [...] by Bienvenido Gabriel MD in OV> 03/30/25 131 DD/ 04 TD/TT: 03/30/251309 Bench Shear Operator: Procedure Note Donotuseinterpreter, Image - 03/30/[address] [address] XRay Report Signed Patient: Mayra NicholsononyMR# : [id number] : 1995Acct:[id number] Age/Sex: 29 MADM Date: 03/30/25 Loc: .ED Attending Dr: Ordering Physician: Candice De Los Santos NP Date of Service: 03/30/25 Procedure(s): XR chest 2V Accession Number(s): [id number] cc: Tyler Hatfield MD; Candice De Los [...] Gabriel MD in OV> 03/30/25 1312 DD/ 04 TD/TT: 03/30/251309 Bench Shear Operator: [facility] External Provider IMG XR PROCEDURES Edited Result - Final * (ABNORMAL) CBC auto differential (03/30/2025 12:00 PM EDT) White Blood Count 5.1 4.8 - 10.8 X10*3/uL [facility] Red Blood Count 4.71 4.60 - 5.80 X10*6/uL [facility] Hemoglobin 14.3 14.0 - 18.0 g/dl [facility] Hematocrit 39.8(L) 42.0 - 52.0 % [facility] Mean Corpuscular Volume 84.5 80.0 - 98.0 fL [facility] Mean Corpuscular Hemoglobin 30.4 27.0 - 33.0 pg [facility] Mean Corpuscular HGB Conc 35.9 31.0 - 36.0 g/dl [facility] Red Cell Distribution Width 11.9 11.0 - 16.0 % [facility] Platelet Count 312 160 - 400 X10*3/uL [facility] Mean Platelet Volume 9.8 9.4 - 12.4 fL [facility] Neutrophils Percent Auto 50.8 45 - 73 % [facility] Imm Gran Pct Auto 0.2 0.0 - 0.4 % [facility] Lymphocytes Percent Auto 39.5 20 - 40 % [facility] Monocytes Percent Auto 7.1 2 - 11 % [facility] Eosinophils Percent Auto 1.8 0 - 4 % [facility] Basophils Percent Auto 0.6 0 - 2 % [facility] NRBC Pct Auto 0.0 0.0 - 0.2 /100WBC [facility] Neutrophils Absolute Auto 2.6 2.0 - 8.3 x10*3/uL [facility] Imm Gran Abs Auto 0.01 0.00 - 0.03 X10*3/uL [facility] Lymphocytes Absolute Auto 2.0 1.2 - 4.9 X10*3/uL [facility] Monocytes Absolute Auto 0.4 0.1 - 1.2 X10*3/uL [facility] Eosinophils Absolute Auto 0.1 0.0 - 0.4 X10*3/uL [facility] Basophils Absolute Auto 0.0 0.0 - 0.2 X10*3/uL [facility] NRBC Abs Auto 0.000 0.0 - 0.012 X10*3/uL [facility] 03/30/2025 12:0 0 PM EDT 03/30/2025 12:03 PM EDT us Generic External Data Provider LAB BLOOD ORDERAB LES Final Result [facility] [address] [place] [phone] * (ABNORMAL) Comprehensive Metabolic Panel (03/30/2025 12:00 PM EDT) Sodium 141 135 - 145 mmol/L [facility] Potassium 3.9 3.3 - 5.1 mmol/L [facility] Chloride 107 96 - 108 mmol/L [facility] Carbon Dioxide 26 22 - 29 mmol/L [facility] Anion Gap 12 12 - 20 [facility] Urea Nitrogen (BUN) 13 9 - 16 mg/dL [facility] Creatinine, Serum 0.97 0.5 - 1.4 mg/dL [facility] Creatinine Clr Calc Pharmacy 132.7 [facility] Comment:eGFR (calculated fro m the MDRD study equation) and eCrCl(calculated from the Cockcroft-Gault equation) are based ondifferent parameters and may not yield comparable results.If eCrCl result is absurd, please check patient'sheight/weight. Estimated Glomerular Filt Rate >60 [facility] Comment:Chronic Kidney Disea se: Estimated GFR < 60 mL/min/1.60f2Hfagoq Kidney Disease: Estimated GFR < 15 mL/min/1.73m2 Glucose 94 60 - 115 mg/dL [facility] Calcium 9.3 8.4 - 10.2 mg/dL [facility] Bilirubin, Total 0.4 0.0 - 1.0 mg/dL [facility] Aspartate Amino Transferase 27 5 - 37 U/L [facility] Alanine Aminotransferase 43(H) 0 - 40 U/L [facility] Total Protein 7.5 6.5 - 8.0 g/dL [facility] Albumin Level 4.7 3.5 - 5.0 g/dL [facility] Alkaline Phosphatase 76 39 - 117 U/L [facility] 03/30/2025 12:0 0 PM EDT 03/30/2025 12:03 PM EDT Generic External Data Provider LAB BLOOD ORDERAB LES Final Result Performing Organization Address [facility]/ZIP Co de Phone Number [facility] [address] [place] [phone] * SARS-CoV-2 RNA, Influenza A/B, and RSV RNA, Ql NAAT (03/30/2025 11:58 AM EDT) Influenza A PCR NEGATIVE Negative [facility] Influenza B PCR NEGATIVE Negative [facility] Resp Syncy Virus RNA Qual PCR NEGATIVE Negative [facility] SARS COV2 PCR NEGATIVE Negative [facility] Comment:All test results mus t [...] use by authorized laboratories.Testing performed on the [employer] GeneXpert utilizingreal-time RT-PCR.All SARS CoV2 and positive influenza A/B results arereported to [facility]. 03/30/2025 11:5 8 AM EDT 03/30/2025 12:04 PM EDT Generic External Data Provider LAB MICROBIOLOGY - GENERAL ORDERABLES Final Result Performing Organization Address [facility]/ZIP Co de Phone Number [facility] [address] [place] [phone] [phone] from Last 3 Months Insurance [facility] [place] Address: [facility] [address] [place] [address]
[2025-06-14 08:12] VITALS: BMI 35.0
== END 2025-06-14 08:25 | disposition home or self-care (01) ==
LOC: HO.HOS 08:01
PROVIDERS: PCP Internal Medicine; Visit Provider Orthopaedic Surgery
DX: M25.511 Pain in right shoulder (principal)
CPT/HCPCS: 99203

== ENCOUNTER → 2025-06-14 08:01 | Outpatient (BNVA) | payer OTHER, SELFPAY | PROVIDERS: PCP Internal Medicine; Visit Provider Orthopaedic Surgery | DX: M25.511 Pain in right shoulder (principal) | CPT/HCPCS: 99202 ==

== ENCOUNTER 2025-06-24 09:53 | Outpatient (REF) | payer OTHER, SELFPAY ==
--- OUTSIDE RECORDS SUMMARY | 2025-06-21 14:00 | XMS_ITS | Encounter Summary ---
Author Organization [employer] Address [address] [facility] 7 [place] [address] Care Team Providers Care Long Distance Operator Name Role Phone Kelly Zelaya NP Primary Care Provider [phone] Reason for Referral * Consultation (Routine) - Pending Review Specialty Diagnoses / Procedures Referred By Shahab alves Referred To Contact Optometry Diagnoses Wears glasses Kelly Zelaya NP [address] [place] [address] Phone: tel: fax: Referral ID Status Reason Start Date Expiration Date Visits Requested Visits Authorized [id number] Pending Review Specialty Services Required 06/21/2025 06/21/2026 1 1 Reason for Visit * Reason Comments new patient Encounter Details Date Type Department Care Team (Late st Contact Info) Description 06/21/2025 2:00 PM EDT Office Visit [facility] [address] [place] [address] Kelly Zelaya NP [address] [place] [address] Encounter to establish care with new provider (Primary Dx); Wears glasses; Encounter for health-related screening; Dietary counseling; Exercise counseling; Class 2 obesity due to excess calories without serious comorbidity with body mass index (BMI) of 35.0 to 35.9 in adult; Encounter for immunization Social History Tobacco Use Types Packs/Day Years Used Date Smoking Tobacco: Never Smokeless Tobacco: Never Tobacco Cessation:Counseling Given: Not Answered Alcohol Use Standard Drinks/Week Comments Never 0 (1 standard drink = 0.6 oz pur e alcohol) Depression Answer Date Recorded Patient Health Questionnaire-9 Score 2 06/21/2025 Patient Health Questionnaire-9 Score 2 06/21/2025 Last PHQ-9: Questionnaire Data Not on file 1 Housing Stability Answer Date Recorded What is your housing situation today? I have jaime ariza 06/14/[address] you li ve. Do you have problems with any of the following? None of the above 06/14/2025 Food Insecurity Answer Date Recorded Within the past 12 months, y ou worried that your food would run out before you got money to buy more: Never True 06/14/2025 Within the past 12 months,th e food you bought just didn't last and you didn't have enough money to get more: Never True 09/2024 Transportation Answer Date Recorded In the past 12 months, has l ack of transportation kept you from medical appts, meetings, work or from getting things needed for daily living? No 06/14/2025 Utilities Answer Date Recorded In the past 12 months, has t he electric, gas, oil or water company threatened to shut off services in your home? No 06/14/2025 Depression Answer Date Recorded Patient Health Questionnaire-2 Score 0 06/21/2025 Internet Access Answer Date Recorded Internet Access Q1 Yes 06/14/2025 Internet Access Q2 Not on file 06/14/2025 Sex and Gender Information Value Date Recorded Sex Assigned at Male 06/21/2025 2:00 PM EDT Legal Sex Male 11:57 AM EDT Gender Identity Male 06/21/2025 2:00 PM EDT Sexual Orientation Don't know 06/21/2025 2: 00 PM EDT documented as of this encounter Last Filed Vital Signs Vital Sign Reading Time Taken Comments Blood Pressure 122/88 06/21/2025 2:13 PM EDT Pulse 72 06/21/2025 2:13 PM EDT Temperature 37.4 C (99.3 F) 06/21/2025 2:13 PM EDT Respiratory Rate 18 06/21/2025 2:13 PM EDT Oxygen Saturation 99% 06/21/2025 2:13 PM EDT Inhaled Oxygen Concentration - - Weight 106 kg (233 lb 6.4 oz) 06/21/2025 2:13 PM EDT Height 172.7 cm (5' 8 ) 06/21/2025 2:13 PM EDT Body Mass Index 35.49 06/21/2025 2:13 PM EDT documented in this encounter Functional Status * Over the past 2 weeks, how often have you been bothered by any of the following problems? Question Answer Date of Assessment Author Patient Health Questionnaire -2 Score 0 06/21/2025 2:59 PM EDT Krystal Rangel MA * Little interest or pleasure in doing things Answer Date of Assessment Author Not at all 06/21/2025 2:59 PM EDT Krystal Rangel MA * Feeling down, depressed, or hopeless Answer Date of Assessment Author Not at all 06/21/2025 2:59 PM EDT Krystal Rangel MA * Trouble falling or staying asleep, or sleeping too much Answer Date of Assessment Author Several days 06/21/2025 2:59 PM EDT Krystal Rangel MA * Feeling tired or having little energy Answer Date of Assessment Author Several days 06/21/2025 2:59 PM EDT Krystal Rangel MA * Poor appetite or overeating Answer Date of Assessment Author Not at all 06/21/2025 2:59 PM EDT Krystal Rangel MA * Feeling bad about yourself - or that you are a failure or have let yourself or your family down Answer Date of Assessment Author Not at all 06/21/2025 2:59 PM EDT Krystal Rangel MA * Trouble concentrating on things, such as reading the newspaper or watching television Answer Date of Assessment Author Not at all 06/21/2025 2:59 PM EDT Krystal Rangel MA * Moving or speaking so slowly that other people could have noticed? Or the opposite - being so fidgety or restless that you have been moving around a lot more than usual. Answer Date of Assessment Author Not at all 06/21/2025 2:59 PM EDT Krystal Rangel MA * Thoughts that you would be better off or hurting yourself in some way Answer Date of Assessment Author Not at all 06/21/2025 2:59 PM EDT Krystal Rangel MA * Patient Health Questionnaire-9 Score Answer Date of Assessment Author 2 06/21/2025 2:59 PM EDT Krystal Rangel MA * How difficult have these problems made it for you to do your work, take care of things at home, or get along with other people? Answer Date of Assessment Author Not difficult at all 06/21/2025 2:59 PM EDT Krystal Su MA * Over the last 2 weeks, how often have you been bothered by any of the following problems? Question Answer Date of Assessment Author Feeling nervous, anxious, or on edge 1 06/21/2025 2:59 PM EDT Krystal Rangel MA Not being able to stop or co ntrol worrying 0 06/21/2025 2:59 PM EDT Krystal Rangel MA Worrying too much about diff erent things 0 06/21/2025 2:59 PM EDT Krystal Rangel MA Trouble relaxing 0 06/21/2025 2:59 PM EDT Krystal Valero MA Being so restless that it is hard to sit still 0 06/21/2025 2:59 PM EDT Krystal Rangel MA Becoming easily annoyed or irritable 0 06/21/2025 2:59 PM EDT Krystal Rangel MA Feeling afraid as if somethi ng awful might happen 0 06/21/2025 2:59 PM EDT Krystal Rangel MA SHIN-7 Total Score 1 06/21/2025 2:59 PM YAHIRT Krystal Rangel MA documented as of this encounter Plan of Treatment Scheduled Orders Name Type Priority Associated Diagnoses Orde r Schedule Lipid Panel, Standard Lab Routine Class 2 obesity due to excess calories without serious comorbidity with body mass index (BMI) of 35.0 to 35.9 in adult Expected: 06/21/2025 (Approximate), Expires: 06/21/2026 HIV-1/2 Antigen and Antibodies, Fourth Generation, with Reflexes Lab Routine Wears glasses Expected: 06/21/2025 (Approximate), Expires: 06/21/2026 TSH W/Reflex to FT4 Lab Routine Class 2 obesity due to excess calories without serious comorbidity with body mass index (BMI) of 35.0 to 35.9 in adult Expected: 06/21/2025 (Approximate), Expires: 06/21/2026 Hemoglobin A1c Lab Routine Class 2 obesity due to excess calories without serious comorbidity with body mass index (BMI) of 35.0 to 35.9 in adult Expected: 06/21/2025 (Approximate), Expires: 06/21/2026 Scheduled Referrals Name Type Priority Associated Diagnoses Orde r Schedule Referral to Optometry Outpatient Referral Routine Wears glasses Expected: 06/21/2025 (Approximate), Expires: 06/21/2026 documented as of this encounter Visit Diagnoses Diagnosis Encounter to establish care with new provider- Primary Wears glasses Other specified conditions influencing health status Encounter for health-related screening Dietary counseling Dietary surveillance and counseling Exercise counseling Class 2 obesity due to excess calories without serious comorbidity with body mass index (BMI) of 35.0 to 35.9 in adult Encounter for immunization documented in this encounter Additional Health Concerns Assessment Noted Time PHQ-9 Depression Total Score: 2 06/21/20 2:59 PM EDT documented as of this encounter Care Teams Long Distance Operator Relationship Specialty Start Date End Date Kelly Zelaya NP [address] [place] [phone] PCP - General Family Medicine 06/20/25 documented as of this encounter
--- OUTSIDE RECORDS SUMMARY | 2025-06-24 09:55 | XMS_ITS | Clinical Summary ---
Author Organization [employer] Address [address] [place] [address] 7 [place] [address] Care Team Providers Care Fugitive Detective Name Role Phone Kelly Zelaya NP Primary Care Provider [phone] Allergies No known active allergies Active Problems Problem Noted Date Diagnosed Date Calculus of kidney 06/21/2025 Hemorrhoids, external, thrombosed 06/21/2025 Ureterolithiasis 06/21/2025 Encounters Date Type Department Care Team Description 06/21/2025 2:00 PM EDT Office Visit [address] [address] Kelly Zelaya NP Encounter to establish care with new provider (Primary Dx); Wears glasses; Encounter for health-related screening; Dietary counseling; Exercise counseling; Class 2 obesity due to excess calories without serious comorbidity with body mass index (BMI) of 35.0 to 35.9 in adult; Encounter for immunization 06/21/2025 Travel 06/20/[address] [address] Kelly Zelaya NP CHARTPREP 06/14/2025 Patient [facility] [address] [place] [address] Kelly Zelaya NP Pre-visit Planning (SDOH negative. Tobacco screening negative.) 04/18/[address] [address] Tyler Reyes MD Call Back Request 03/30/2025 Orders Only GENERIC EXTERNAL DATA DEPARTMENT Provider, Generic External Data 03/28/[address] [address] Tyler Reyes MD from Last 3 Months Immunizations Immunization Administration Dates Next Due Influenza, seasonal, injectable, preservative fr ee 06/21/2025 Family History Medical History Relation Name Comments Colon cancer Maternal Grandmother Diabetes Maternal Grandmother Hyperlipidemia Maternal Grandmother Hyperlipidemia Mother Hypertension Mother Relation Name Status Comments Maternal Grandmother Mother Social History Tobacco Use Types Packs/Day Years [...] Don't know 06/21/2025 2: 00 PM EDT Last Filed Vital Signs Vital Sign Reading [...] Mass Index 35.49 06/21/2025 2:13 PM EDT Plan of Treatment Health Maintenance Due Date Last Done Comments HIV Screening 1996 Lipid Panel 1996 Family Planning (PISQ) 12/01/2011 Hepatitis C Screening 2014 COVID-19 Vaccine ( season) 2025 03/16/2021, 02/02/2021 Alcohol/Substance Use Screening 06/21/2026 06/21/2025 Depression Screening 06/21/2026 06/21/2025, 06/21/20 Disability Screening 06/21/2026 06/21/2025 SDOH Screening 06/21/2026 06/21/2025 Tobacco Screening 06/21/2026 06/21/2025 DTaP/Tdap/Td Vaccines (8 - Td or Tdap) [...] 010 HPV Vaccines Completed 11/28/2014, 08/14, 06/23/2014 Influenza Vaccine Completed 06/21/2025, , 06/23/2014, Additional history exists Hepatitis A Vaccines Aged Out No long [...] EDT) D Dimer High Sensitivity <150 NG/ML [facility] Comment:D-DIMER HS REFERENCE RANGENote: Our [...] Provider LAB BLOOD ORDERAB LES Final Result [facility] [address] [place] [phone] * XR Chest 2 Views (03/30/2025 1:05 PM EDT) Anatomical Region Laterality Modality Chest Radiographic Jessy ging 03/30/2025 1:05 PM EDT Narrative 03/30/2025 1:15 PM EDT [address] [address] XRay Report Signed Patient: Nolan Nicholson MR# : [id number] : 1995 Acct:[id number] Age/Sex: 29 / M ADM Date: 03/30/25 Loc: HO.ED Attending Dr: Ordering Physician: Candice De Los Santos NP Date of Service: 03/30/25 Procedure(s): XR chest 2V Accession Number(s): [id number] cc: Tyler Hatfield MD; Candice De Los Santos NP EXAMINATION: XR CHEST CLINICAL INFORMATION: chest pain on L COMPARISON: None available. TECHNIQUE: 2 views of the chest were obtained. FINDINGS: No significant abnormality is noted involving the heart, lungs, mediastinum, bony thorax or soft tissues. XR/XR chest 2V IMPRESSION: No acute disease Electronically signed by: Bienvenido Gabriel MD 03/30/2025 01:12 PM EDT Dictated By: Bienvenido Gabriel MD Signed By: <Electronically signed by Bienvenido Gabriel MD in OV> 03/30/25 1312 DD/ 1305 TD/TT: 03/30/25 1310 [place] Mixer Operator: Procedure Note Donotuseinterpreter, Image - 03/30/[address] [address] XRay Report Signed Patient: Jackie NicholsonR# : [id number] : 1995Acct:[id number] Age/Sex: 29 / MADM Date: 03/30/25 Loc: HO.ED Attending Dr: Ordering Physician: Candice De Los Santos NP Date of Service: 03/30/25 Procedure(s): XR chest 2V Accession Number(s): [id number] cc: Tyler Hatfield MD; Candice De Los [...] 03/30/25 1312 DD/ 1305 TD/TT: 03/30/25 1310 [place] Mixer Operator: [facility] External Provider IMG XR PROCEDURES Edited Result - Final * (ABNORMAL) CBC auto differential (03/30/2025 12:00 PM EDT) White Blood Count 5.1 4.8 - 10.8 X10*3/uL [facility] Red Blood Count 4.71 4.60 - 5.80 X10*6/uL [facility] Hemoglobin 14.3 14.0 - 18.0 g/dl [facility] Hematocrit 39.8(L) 42.0 - 52.0 % [facility] Mean Corpuscular Volume 84.5 80.0 - 98.0 fL [facility] Mean Corpuscular Hemoglobin 30.4 27.0 - 33.0 pg [facility] Mean Corpuscular HGB Conc 35.9 31.0 - 36.0 g/dl [facility] Red Cell Distribution Width 11.9 11.0 - 16.0 % [facility] Platelet Count 312 160 - 400 X10*3/uL [facility] Mean Platelet Volume 9.8 9.4 - 12.4 fL [facility] Neutrophils Percent Auto 50.8 45 - 73 % [facility] Imm Gran Pct Auto 0.2 0.0 - 0.4 % [facility] Lymphocytes Percent Auto 39.5 20 - 40 % [facility] Monocytes Percent Auto 7.1 2 - 11 % [facility] Eosinophils Percent Auto 1.8 0 - 4 % [facility] Basophils Percent Auto 0.6 0 - 2 % [facility] NRBC Pct Auto 0.0 0.0 - 0.2 /100WBC [facility] Neutrophils Absolute Auto 2.6 2.0 - 8.3 x10*3/uL [facility] Imm Gran Abs Auto 0.01 0.00 - 0.03 X10*3/uL [facility] Lymphocytes Absolute Auto 2.0 1.2 - 4.9 X10*3/uL [facility] Monocytes Absolute Auto 0.4 0.1 - 1.2 X10*3/uL [facility] Eosinophils Absolute Auto 0.1 0.0 - 0.4 X10*3/uL [facility] Basophils Absolute Auto 0.0 0.0 - 0.2 X10*3/uL [facility] NRBC Abs Auto 0.000 0.0 - 0.012 X10*3/uL [facility] 03/30/2025 12:0 0 PM EDT 03/30/2025 12:03 PM EDT us Generic External Data Provider LAB BLOOD ORDERAB LES Final Result [facility] [address] [place] [address] [phone] * (ABNORMAL) Comprehensive Metabolic Panel (03/30/2025 12:00 PM EDT) Sodium 141 135 - 145 mmol/L [facility] Potassium 3.9 3.3 - 5.1 mmol/L [facility] Chloride 107 96 - 108 mmol/L [facility] Carbon Dioxide 26 22 - 29 mmol/L [facility] Anion Gap 12 12 - 20 [facility] Urea Nitrogen (BUN) 13 9 - 16 mg/dL [facility] Creatinine, Serum 0.97 0.5 - 1.4 mg/dL [facility] Creatinine Clr Calc Pharmacy 132.7 [facility] Comment:eGFR (calculated fro m the MDRD study equation) and eCrCl(calculated from the Cockcroft-Gault equation) are based ondifferent parameters and may not yield comparable results.If eCrCl result is absurd, please check patient'sheight/weight. Estimated Glomerular Filt Rate >60 [facility] Comment:Chronic Kidney Disea se: Estimated GFR < 60 mL/min/1.75u3Iyblze Kidney Disease: Estimated GFR < 15 mL/min/1.73m2 Glucose 94 60 - 115 mg/dL [facility] Calcium 9.3 8.4 - 10.2 mg/dL [facility] Bilirubin, Total 0.4 0.0 - 1.0 mg/dL [facility] Aspartate Amino Transferase 27 5 - 37 U/L [facility] Alanine Aminotransferase 43(H) 0 - 40 U/L [facility] Total Protein 7.5 6.5 - 8.0 g/dL [facility] Albumin Level 4.7 3.5 - 5.0 g/dL [facility] Alkaline Phosphatase 76 39 - 117 U/L [facility] 03/30/2025 12:0 0 PM EDT 03/30/2025 12:03 PM EDT us Generic External Data Provider LAB BLOOD ORDERAB LES Final Result [facility] [address] [place] [address] [phone] * SARS-CoV-2 RNA, Influenza A/B, and RSV RNA, Ql NAAT (03/30/2025 11:58 AM EDT) Influenza A PCR NEGATIVE Negative [facility] Influenza B PCR NEGATIVE Negative [facility] Resp Syncy Virus RNA Qual PCR NEGATIVE Negative [facility] SARS COV2 PCR NEGATIVE Negative [facility] Comment:All test results mus t be [...] use by authorized laboratories.Testing performed on the [employer] GeneXpert utilizingreal-time RT-PCR.All SARS CoV2 and positive influenza A/B results arereported to [facility]. 03/30/2025 11:5 8 AM EDT 03/30/2025 12:04 PM EDT us Generic External Data Provider LAB MICROBIOLOGY - GENERAL ORDERABLES Final Result Performing Organization Address City/State/[facility] [[email or web address]] Co de Phone Number [facility] [address] [place] [address] [phone] from Last 3 Months Insurance [facility] 2 Care Teams Fugitive Detective Relationship Specialty Start Date End Date Kelly Zelaya NP [address] [place] [address] PCP - General Family Medicine 06/20/25
--- OUTSIDE RECORDS SUMMARY | 2025-06-24 09:55 | XMS_ITS | Encounter Summary ---
Author Organization [employer] Address [address] [place] [address] Care Team Providers Care English Lecturer Name Role Phone Kelly Zelaya JOSEPH Primary Care Provider [phone] Encounter Details Date Type Department Care Team (Latest Contact Info) Description 06/21/2025 Travel Social History Tobacco Use Types Packs/Day Years Used Date Smoking Tobacco: Never Smokeless Tobacco: Never Alcohol Use Standard Drinks/Week Comments Never 0 [...] PM EDT documented as of this encounter Functional Status * Over the [...] SHIN-7 Total Score 1 06/21/2025 2:59 PM EDT Krystal Rangel MA documented as of this encounter Plan of Treatment Not on file documented as of this encounter Visit Diagnoses Not on filedocumented in this encounter Additional Health Concerns Assessment Noted Time PHQ-9 Depression Total Score: 2 06/21/20 25 2:59 PM EDT documented as of this encounter Care Teams English Lecturer Relationship Specialty Start Date End Date Kelly Zelaya NP [address] [place] [phone] PCP - General Family Medicine 06/20/25 documented as of this encounter
--- OUTSIDE RECORDS SUMMARY | 2025-06-24 09:55 | XMS_ITS | Encounter Summary ---
Author Organization [email or web address] Address [address] [place] [address] Care Team Providers Care Diversified Crops I Farmworker Name Role Phone Kelly Zelaya NP Primary Care Provider [phone] Reason for Visit * Reason Onset Date Comments CHARTPREP 06/20/2025 Encounter Details Date Type Department Care Team (Late st Contact Info) Description 06/20/[address] [facility] [address] [place] [address] Kelly Zelaya NP [address] [place] [address] CHARTPREP Social History Tobacco Use Types Packs/Day Years Used Date Smoking Tobacco: Never Assessed Depression Answer Date Recorded Patient Health Questionnaire-9 [...] PM EDT documented as of this encounter Miscellaneous Notes * Telephone Encounter - Krystal Rangel MA - 06/20/2025 9:28 AM EDT Chart Prep Labs: done Images: done Referrals: not applicable Vaccines due: Covid and Flu Screenings: HIV screening, alcohol/substance use screening Overdue care gaps: SBIRT, PHQ-9, SHIN-7, Disability screen, and Tobacco documented in this encounter Plan of Treatment Not on file documented as of this encounter Visit Diagnoses Not on filedocumented in this encounter Care Teams Diversified Crops I Farmworker Relationship Specialty Start Date End Date Kelly Zelaya NP [address] [place] [phone] PCP - General Family Medicine 06/20/25 documented as of this encounter
[2025-06-24 11:46] LABS: Cholesterol 256 mg/dL (<200); HDL Cholesterol 40 mg/dL (>40); Triglycerides 165 mg/dL (<150)
[2025-06-24 12:07] LABS: HIV Num 1 0.05 S/CO (0.00-0.99)
== END 2025-06-24 09:54 | disposition home or self-care (01) ==
LOC: HO.LAB 09:53
PROVIDERS: PCP Nurse Practitioner; Visit Provider Nurse Practitioner
DX: E66.9 Obesity, unspecified (principal); Z97.3 Presence of spectacles and contact lenses
CPT/HCPCS: 36415; 80061; 83036; 84443; 87389